=== PATIENT | male | born 1965 | race Caucasian/White ===

== ENCOUNTER 2018-01-02 01:44 | Emergency (ER) | payer BC, SELFPAY ==
[2018-01-02 01:45] VITALS: BP 134/90; PULSE 75; RESP 14; TEMP 36.9; O2SAT 100; BMI 27.9
--- NOTE | 2018-01-02 01:48 | NURSING ---
CALLED FOR EKG PER RN REQUEST, PULLED OLD EKG'S FOR
--- NOTE | 2018-01-02 02:11 | EKG12_ITS ---
Test Reason : SYNCOPE Blood Pressure : / mmHG Vent. Rate : 078 BPM Atrial Rate : 078 BPM P-R Int : 172 ms QRS Dur : 076 ms QT Int : 354 ms P-R-T Axes : 054 033 029 degrees QTc Int : 403 ms Normal sinus rhythm Normal ECG Confirmed by MASTER DUKES, REYNA ([id number]), newspaper managing editor YG TEIXEIRA ([id number] on 01/05/2018 1:19:13 PM Referred By: CHRISTIAN Confirmed By:REYNA THAO MD
--- NOTE | 2018-01-02 02:11 | RAD_ITS ---
STUDY: X-RAY CHEST REASON FOR EXAM: Male, 52 years old. Syncope TECHNIQUE: Frontal and lateral views of the chest. COMPARISON: None. FINDINGS: The lungs are clear and expanded. There is no demonstrated pleural abnormality. Normal size heart. Normal mediastinum and brisa. Normal visualized pulmonary arteries. Normal visualized aortic arch and descending thoracic aorta. Normal visualized thoracic spine. Normal visualized ribs, clavicles, and shoulders. There is no demonstrated abnormality of the visualized soft tissue structures of the upper abdomen. RAD/Chest PA and Lateral IMPRESSION: Normal x-ray examination of the chest. Electronically Signed: Marcie Noland MD at 3:40 EDT Tel , Service support ,
[2018-01-02 02:25] VITALS: BP 125/86; BP 126/75; BP 144/85; PULSE 74; PULSE 75; PULSE 86
[2018-01-02 02:25] LABS: Absolute Lymphocyte Count 1.14 X10^3/ul (0.83-4.51); Absolute Neutrophil Count 4.1 X10^3/uL (2.0-7.7); Basophil# 0.04 X10^3/uL; Basophil% 0.7 % (0-1); Eosinophil# 0.06 X10^3/uL; Hematocrit 36.6 % (40-54); Hemoglobin 12.4 g/dl (13.0-16.5); Lymphocyte # 1.14 X10^3/ul (4.0); Lymphocyte % 19.2 % (19-41); Mean Corp Hgb Conc 33.9 g/gl (32-36); Mean Corpuscular Volume 88.4 fL (80-94); Mean Platelet Vol. 9.4 fl (6.2-12.0); Monocyte# 0.57 X10^3/uL; Monocyte% 9.6 % (0-10); Neutrophil # 4.13 X10^3/uL (2.7-7.7); Neutrophil % 69.3 % (47-70); Platelet Count 201 K/mm3 (150-450); RBC Distribution Width CV 12.1 % (11.6-14.6); RBC Distribution Width SD 38.9 fl (35.1-43.9); Red Blood Count 4.14 M/mm3 (4.6-6.2)
--- NOTE | 2018-01-02 02:25 | RAD_ITS ---
STUDY: X-RAY - LEFT KNEE REASON FOR EXAM: Male, 52 years old. Syncope TECHNIQUE: 5 view(s) of the knee. COMPARISON: None. FINDINGS: Normal visualized distal femur. Normal visualized proximal tibia and fibula. Normal proximal tibiofibular articulation. Normal medial femorotibial compartment. Normal lateral femorotibial compartment. Normal patellofemoral articulation. The soft tissue structures are unremarkable. RAD/Knee 4 or More Views IMPRESSION: Normal x-ray examination of the knee. Electronically Signed: Camilo Mclaughlin MD at 3:13 EDT , Service support ,
[2018-01-02 02:27] LABS: POSITIVE COUNT NO; POSITIVE DIFFERENTIAL NO; POSITIVE MORPHOLOGY NO
[2018-01-02 02:44] LABS: Anion Gap 7 (5-15); BUN 15 mg/dL (7-18); BUN/Creat Ratio 13.2 RATIO (10-20); Calcium,Total 7.7 mg/dL (8.5-10.1); Chloride 100 mmol/L (98-107); Creatinine, Serum 1.14 mg/dL (0.70-1.30); EST Glomerular Filtration Rate 71 mL/min (>60); Est Glom Filt Rate - Afr Amer 86 mL/min (>60); Estimated Creatinine Clearance 74.94 ml/min; Glucose 206 mg/dL (74-106); Potassium 4.1 mmol/L (3.5-5.1); Sodium Level 135 mmol/L (136-145)
[2018-01-02] MEDS: Diphth,Pertuss(Acell),Tet Vac 0.5 ML Vial IM (03:37)
[2018-01-02 03:45] VITALS: RESP 16
--- NOTE | 2018-01-02 03:49 | ED.DCSUM_ITS ---
- ER Visit Summary Date of Service: 01/02/18 Chief Complaint: Near syncope History of Present Illness: The patient is a 52 M who presents with near syncope. He did donate blood today. He also had a glass of wine tonight. He was standing for several minutes speaking to his when he began to feel lightheaded and dizzy. He states he felt like the blood was draining from my head. He became diaphoretic. He thought his blood sugar may be low. He began to walk towards another room and fell. He does not believe he completely lost consciousness. He did hit his left knee when he fell and is complaining of some left knee discomfort although he was able to ambulate. Currently while resting in the bed he is now completely symptomatic. He states his blood sugar was 170. No chest pain or shortness of breath. No history of coronary disease or dysrhythmia. No history of prior similar symptoms. No recent illness. Physical Examination: Laboratory studies are unremarkable Moist mucous membranes Heart regular rate and rhythm Lungs are clear Abdomen soft Abrasion left elbow but no tenderness active full range of motion without pain Contusion to the anterior left knee no effusion active full range of motion Test Results: EKG shows normal sinus rhythm at a rate of 78. Chest x-ray shows no acute process. Knee x-ray normal. Laboratory studies including troponin unremarkable and orthostatic vital signs are negative. Emergency Department Course and Treatment: Patient declined IV fluids here stating that he drank a large volume of water prior to presentation here to the emergency department. Static vital signs are negative. Workup unremarkable. I do believe his near syncope was related to hypovolemia from his blood donation earlier which was likely exacerbated by alcohol tonight and standing still. I do not see an indication for hospitalization. He was advised to take his time when changing positions and to avoid alcohol after blood donation in the future. All questions answered bedside. Patient family agreeable to plan. Patient discharged. Treatment Plan: [] Disposition: Discharge Impression: Left knee contusion Left elbow abrasion Near syncope This note was generated with [employer] dictation software. It may contain incorrect words, spelling, and punctuation that were not noted in review of the chart prior to signing ED Disposition - Plan for ED Patient: Chief Complaint: Syncope Referrals: Zev Abraham MD [Primary Care Provider] -
--- NOTE | 2018-01-02 03:49 | ED.DEP ---
ED Disposition - Plan for ED Patient: Chief Complaint: Syncope Instructions: ED Near Syncope Unkn, ED Contusion Lower Ext, ED Abrasion Referrals: Zev Abraham MD [Primary Care Provider] -
== END 2018-01-02 03:57 | disposition home or self-care (01) ==
PROVIDERS: Emergency Provider Emergency Medicine; Family Provider Family Medicine; PCP Family Medicine
DX: R55 Syncope and collapse (principal); S80.02XA Contusion of left knee, initial encounter; S50.312A Abrasion of left elbow, initial encounter; E11.9 Type 2 diabetes mellitus without complications; I10 Essential (primary) hypertension; E78.00 Pure hypercholesterolemia, unspecified; Z79.4 Long term (current) use of insulin; Z79.82 Long term (current) use of aspirin; Z79.899 Other long term (current) drug therapy; W18.39XA Other fall on same level, initial encounter; Y93.89 Activity, other specified; Y92.009 Unspecified place in unspecified non-institutional (private) residence as the place of occurrence of the external cause; Y99.8 Other external cause status
CPT/HCPCS: 71046; 73564; 80048; 84484; 85025; 90471; 90715; 93005; 99285; A4216

== ENCOUNTER → 2018-01-21 07:05 | Outpatient (CLI) | payer BC, SELFPAY ==
[2018-01-21 10:10] LABS: ALB/GLOB Ratio 1.2 RATIO (0.9-2.4); AST(SGOT) 20 U/L (15-37); Alanine Aminotransfer ALT/SGPT 20 U/L (16-61); Albumin, Serum 3.4 g/dL (3.2-5.0); Alkaline Phosphatase 64 U/L (45-117); Anion Gap 8 (5-15); BUN 14 mg/dL (7-18); BUN/Creat Ratio 11.1 RATIO (10-20); Calcium,Total 8.1 mg/dL (8.5-10.1); Chloride 105 mmol/L (98-107); Cholesterol 135 mg/dL (200); Creatinine, Serum 1.26 mg/dL (0.70-1.30); EST Glomerular Filtration Rate 63 mL/min (>60); Est Glom Filt Rate - Afr Amer 77 mL/min (>60); Globulin 2.9 g/dL (2.2-4.2); Glucose 148 mg/dL (74-106); Hemoglobin A1c 6.7 % (4.2-6.3); High Density Lipoprotein 56 mg/dL; Potassium 4.2 mmol/L (3.5-5.1); Protein, Total 6.3 g/dL (6.4-8.2); Sodium Level 141 mmol/L (136-145); Triglycerides 86 mg/dL; Very Low Density Lipoprotein 17 mg/dL (5-40)
[2018-01-21 10:31] LABS: Microalbumin,Random Urine 5.2 mg/L (NO RANGE EST.); Microalbumin:Creatinine Ratio 3.4 mg/g CRE (<30 mg/g CRE)
== END ==
PROVIDERS: Family Provider Family Medicine; PCP Family Medicine; Visit Provider Nurse Practitioner
DX: E10.9 Type 1 diabetes mellitus without complications (principal)
CPT/HCPCS: 36415; 80053; 80061; 82043; 82570; 83036

== ENCOUNTER 2020-10-12 18:00 | Outpatient (RCR) | payer OTHER, SELFPAY ==
[2018-01-22 08:32] VITALS: BMI 27.9
--- NOTE | 2020-08-29 13:00 | HP.PTEVAL ---
Patient's Visit Information LETI NEGRETE is a 55 year old M referred to Physical Therapy by CHRISTIE MckenzieM with a diagnosis of L Plantarfascitis. Date of Evaluation: 08/28/20 Physical Therapist: Eladio Wyatt, PT, ATC - Visit Plan Frequency: 2-3x /Week Duration: 4-6 Weeks Plan: L foot stretching, DTR, US, and HEP - Subjective Pt reports he has had L heel pain for several years. Pt notes his pain comes and goes depending on how much activity he does in that day. Pt reports he has stretched it and received other treatment in the past which is always temperary. Pt reports no L LE tingling or numbness at this time. Pt reports he has had xrays which revealed he has very little padding in his plantar aspect of B feet. Pt reports his goal is to be able to run with his again for exercise. Pt notes he is unable to run and has difficulty with mowing secondary to pain. 0/10 pain at rest, 3/10 at worst. - Pain L heel Pain Intensity (Out of 10): 0 Pain Intensity Range: 3 - Objective Neuro: B LE sensation is WNL to light touch. B achilles reflex= 2/3. Palpation: Mild pain on anterior/plantar calcaneous. No obvious deformity at this time. ROM: R ankle DF= 8, PF= 60; L ankle DF= 6, PF= 60. MMT: B ankles are 5/5 throughout. Gait: Pt ambulates with late pronation in both feet in stance phase - Goals Goal 1:: Decrease L heel pain x 50% to aid with ambulaltion tolerance Goal Time Frame: 4-6 Weeks Goal 2:: Increase L ankle DF ROM x 5-10 degrees to aid with decreasing L heel pain Goal Time Frame: 4-6 Weeks Goal 3:: I with HEP Goal Time Frame: 4-6 Weeks - Rehabilitation Potential Physical Therapy Diagnosis: L foot pain, limited L ankle DF ROM, and difficulty with running secondary to L heel plantarfascitis Rehabilitation Potential: Good - Anticipated Interventions Patient/Client Instruction: Educate patient on: Condition, Plan of Care For the Purpose of:: To improve self management Manual Therapy Techniques to Include: Soft tissue mobilization For the Purpose of:: To decrease pain Thank you for the opportunity to evaluate your patient. For Medicare and Medicare HMO plans, please review the plan of care and approve it. It will need to be FAXED BACK to us at [phone] for Medicare purposes. For Medicare only, by signing this I certify the plan of care. Please let me know if there are questions or concerns regarding this plan of care. Physician Signature: Date:
--- NOTE | 2020-09-25 18:02 | HP.PTREVAL ---
Dr. Adrianna Rodrigues, DPM, It has been my pleasure to treat LETI NEGRETE over the last 7 visits for L Plantarfascitis. Please see the progress note below for an update on the physical therapy plan of care! Subjective: Pt reports mild pain this date Objective/Function: L heel pain ranges from 1-3/10. L ankle DF ROM 10 degrees. Pt is progressing well towards Rx goals. Plan Plan: L foot stretching, DTR, US, and HEP Goals Goal 1:: Decrease L heel pain x 50% to aid with ambulaltion tolerance Goal Time Frame: 4-6 Weeks Goal Progress: Progressing Goal 2:: Increase L ankle DF ROM x 5-10 degrees to aid with decreasing L heel pain Goal Time Frame: 4-6 Weeks Goal 3:: I with HEP Goal Time Frame: 4-6 Weeks Anticipated Interventions Patient/Client Instruction: Educate patient on: Condition, Plan of Care For the Purpose of:: To improve self management Manual Therapy Techniques to Include: Soft tissue mobilization For the Purpose of:: To decrease pain Please do not hesitate to contact me at [phone] by phone or if you have questions or concerns regarding this new plan of care! Sincerely, Eladio Wyatt, PT, ATC
--- NOTE | 2020-12-27 08:36 | HP.PT.NRP ---
LETI MONETWANDAELLEN was seen in my office for initial evaluation on 08/28/20. The following Plan of Care was established for this patient: Initial Frequency: 2-3x /Week Initial Duration: 4-6 Weeks Patient/Client Instruction: Educate patient on: Condition, Plan of Care For the Purpose of:: To improve self management Manual Therapy Techniques to Include: Soft tissue mobilization For the Purpose of:: To decrease pain This patient was last seen in our office . Pertinent comments regarding their Physical therapy will appear below: Pt was treated for 9 PT visits for L foot pain through the date of 10/12/20. Pt did not return after that date and is discontinued at this time. At this point I will be discontinuing this patient from physical therapy. I would be happy to see this patient again in the future if found appropriate by the physician. Thank you! Eladio Wyatt, PT, ATC
== END 2020-10-12 19:00 | disposition home or self-care (01) ==
LOC: PT 18:00
PROVIDERS: PCP Family Medicine; Referring Provider Podiatrist Foot & Ankle Surgery; Visit Provider Podiatrist Foot & Ankle Surgery
DX: M72.2 Plantar fascial fibromatosis (principal); M79.672 Pain in left foot
CPT/HCPCS: 97035; 97110; 97140; 97161; 97164

== ENCOUNTER → 2021-09-26 08:46 | Outpatient (CLI) | payer OTHER, SELFPAY ==
[2021-09-26 12:35] LABS: Vitamin D,25 Hydroxy 64.2 ng/mL
[2021-09-26 12:38] LABS: AST(SGOT) 25 U/L (15-37); Alanine Aminotransfer ALT/SGPT 38 U/L (16-61); Albumin, Serum 3.7 g/dL (3.2-5.0); Alkaline Phosphatase 86 U/L (45-117); Anion Gap 11 (5-15); BUN 12 mg/dL (7-18); BUN/Creat Ratio 8.8 RATIO (10-20); Calcium,Total 8.7 mg/dL (8.5-10.1); Chloride 103 mmol/L (98-107); Cholesterol 145 mg/dL (200); Creatinine, Serum 1.37 mg/dL (0.70-1.30); EST Glomerular Filtration Rate 57 mL/min (>60); Est Glom Filt Rate - Afr Amer 69 mL/min (>60); Globulin 3.6 g/dL (2.2-4.2); Glucose 160 mg/dL (74-106); High Density Lipoprotein 55 mg/dL; Potassium 4.5 mmol/L (3.5-5.1); Protein, Total 7.3 g/dL (6.4-8.2); Sodium Level 142 mmol/L (136-145); Thyroid Stim Hormone (TSH) 3.05 uIU/mL (0.358-3.74); Triglycerides 96 mg/dL; Very Low Density Lipoprotein 19 mg/dL (5-40)
[2021-09-26 12:52] LABS: Microalbumin,Random Urine 9.7 mg/L (NO RANGE EST.)
== END ==
PROVIDERS: PCP Family Medicine; Referring Provider Internal Medicine Endocrinology, Diabetes & Metabolism; Visit Provider Internal Medicine Endocrinology, Diabetes & Metabolism
DX: E10.9 Type 1 diabetes mellitus without complications (principal); E78.5 Hyperlipidemia, unspecified; I10 Essential (primary) hypertension; E78.2 Mixed hyperlipidemia; E55.9 Vitamin D deficiency, unspecified; Z96.41 Presence of insulin pump (external) (internal)
CPT/HCPCS: 36415; 80053; 80061; 82043; 82306; 82570; 84153; 84443; G0103

== ENCOUNTER 2022-01-12 08:41 | Outpatient (CLI) | payer OTHER, SELFPAY ==
[2022-01-12 10:54] LABS: Anion Gap 1 (5-15); BUN 13 mg/dL (7-18); BUN/Creat Ratio 9.3 RATIO (10-20); Calcium,Total 8.6 mg/dL (8.5-10.1); Chloride 105 mmol/L (98-107); EST Glomerular Filtration Rate 55 mL/min (>60); Est Glom Filt Rate - Afr Amer 67 mL/min (>60); Free T3 2.6 pg/mL (2.18-3.98); Glucose 198 mg/dL (74-106); Potassium 4.5 mmol/L (3.5-5.1); Sodium Level 136 mmol/L (136-145); T4 Free Direct 1.18 ng/dL (0.76-1.46); Thyroid Stim Hormone (TSH) 0.65 uIU/mL (0.358-3.74)
== END 2022-01-12 23:59 | disposition home or self-care (01) ==
PROVIDERS: PCP Family Medicine; Referring Provider Internal Medicine Endocrinology, Diabetes & Metabolism; Visit Provider Internal Medicine Endocrinology, Diabetes & Metabolism
DX: F34.1 Dysthymic disorder (principal); Z79.899 Other long term (current) drug therapy
CPT/HCPCS: 36415; 80048; 84439; 84443; 84481; 84482

== ENCOUNTER → 2022-10-24 | Outpatient (CLI) | payer OTHER, SELFPAY ==
[2022-10-24 17:19] LABS: Vitamin D,25 Hydroxy 69.6 ng/mL
[2022-10-24 17:24] LABS: ALB/GLOB Ratio 1.1 RATIO (0.9-2.4); AST(SGOT) 15 U/L (15-37); Alanine Aminotransfer ALT/SGPT 23 U/L (16-61); Albumin, Serum 3.7 g/dL (3.2-5.0); Alkaline Phosphatase 73 U/L (45-117); Anion Gap 8 (5-15); BUN 11 mg/dL (7-18); BUN/Creat Ratio 7.7 RATIO (10-20); Calcium,Total 8.4 mg/dL (8.5-10.1); Chloride 104 mmol/L (98-107); Cholesterol 142 mg/dL (200); Creatinine, Serum 1.42 mg/dL (0.70-1.30); EST Glomerular Filtration Rate 54 mL/min (>60); Est Glom Filt Rate - Afr Amer 66 mL/min (>60); Globulin 3.3 g/dL (2.2-4.2); Glucose 111 mg/dL (74-106); High Density Lipoprotein 57 mg/dL; Potassium 4.5 mmol/L (3.5-5.1); Sodium Level 139 mmol/L (136-145); Thyroid Stim Hormone (TSH) 1.68 uIU/mL (0.358-3.74); Triglycerides 184 mg/dL; Very Low Density Lipoprotein 37 mg/dL (5-40)
== END | disposition home or self-care (01) ==
LOC: BIMLAB 15:54
PROVIDERS: PCP Family Medicine; Visit Provider Nurse Practitioner Family
DX: E10.9 Type 1 diabetes mellitus without complications (principal)
CPT/HCPCS: 36415; 80053; 80061; 82306; 84439; 84443

== ENCOUNTER → 2023-10-23 | Outpatient (CLI) | payer OTHER, SELFPAY ==
--- OUTSIDE RECORDS SUMMARY | 2023-10-23 16:47 | XMS RPT_ITS | CCD ---
Author Name Unknown Address [address] [place] [address] Organization [facility] Care Team Providers Care Hole Filler Name Role Phone Janet Medina LPN Unavailable Unavailable Yessica Dumont NP Unavailable [phone] aJnet Medina LPN Unavailable Unavailable Yessica Dumont NP Unavailable [phone] ERMA HAWLEY Admitting Unavailable LIYAH SOOD Unavailable LIYAH SOOD Unavailable DR ERMA HAWLEY Attending Unavailable DR ERMA HAWLEY Primary Care Unavailable PROVIDER, UNKNOWN Consulting Liyah Kelly MD Primary Care Provider Liyah Sood MD Primary Care Provider Liyah Sood MD Primary Care Provider LIYAH SOOD Attending Unavailable LIYAH SOOD Primary Care Unavailable LIYAH SOOD Referring Unavailable LIYAH SOOD Primary Care Unavailable LIYAH SOOD Referring Unavailable LIYAH SOOD Primary Care Unavailable LIYAH SOOD Attending Unavailable LIYAH SOOD Primary Care Unavailable Allergies Allergy Classification Reported Allergen(s) Allergy Type Date of Onset Reaction(s) Facility (8 sources) Aspartame; Translations: [ASPARTAME] Drug Allergy 11-18-2005 [facility] Work Phone: Medications Completed/Discontinued Medications Medication Drug Class(es) Dates Sig (Normalized) Sig (Original) aspirin 325 mg oral tablet (11 sources) Platelet Aggregation Inhibitor, Nonsteroidal Anti-inflammatory Drug Start: 06-01-2015 take 0.5 tablet by mouth once daily aspirin 325 mg tablet Indications: Type I (juvenile type) diabetes mellitus 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, not stated as uncontrolled (HCC) Take 1/2 tablet by mouth daily. 0 06/01/2015 Active Problems Active Problems Problem Classification Problem Date Documented Date Episodic/Chronic Chronic kidney disease (4 sources) Chronic kidney disease stage 3A ; Translations: [Stage 3a chronic kidney disease (HCC)] Onset: 02-06-2023 Chronic Chronic kidney disease (1 source) Chronic kidney disease; Translations: [Stage 3a chronic kidney disease (HCC)] Onset: 02-06-2023 Diabetes mellitus with complications (5 sources) Hyperlipidemia due to type 1 diabetes mellitus; Translations: [Type 1 diabetes mellitus with other specified complication] Onset: 02-06-2023 Chronic Diabetes mellitus without complication (14 sources) Type 1 diabetes mellitus; Translations: [Type 1 diabetes mellitus without complications] Onset: 12-31-2016 12-31-2016 Chronic Disorders of lipid metabolism (10 sources) Hyperlipidemia; Translations: [Pure hypercholesterolemia] Onset: 12-31-2016 01-06-2017 Chronic Essential hypertension (7 sources) Hypertensive disorder; Translations: [Essential hypertension] Onset: 12-31-2016 12-31-2016 Chronic Miscellaneous mental health disorders (7 sources) Psychophysiologic insomnia; Translations: [Psychophysiologic insomnia] Onset: 09-06-2015 09-06-2015 Chronic Mood disorders (9 sources) Recurrent major depressive episodes; Translations: [Major depressive disorder, recurrent, unspecified] Onset: 07-12-2015 07-12-2015 Chronic Nutritional deficiencies (8 sources) Vitamin D deficiency; Translations: [Vitamin D deficiency, unspecified] Onset: 10-11-2008 07-12-2015 Chronic Open wounds of extremities (4 sources) 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), 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; Translations: [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), 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] Onset: 01-01-2012 01-15-2012 Chronic Other nutritional; endocrine; and metabolic disorders (4 sources) Overweight; Translations: [Overweight] Onset: 12-31-2016 12-31-2016 Chronic Residual codes; unclassified (7 sources) Obstructive sleep apnea syndrome; Translations: [Obstructive sleep apnea (adult) (pediatric)] Onset: 01-10-2015 05-29-2017 Chronic Thyroid disorders (5 sources) Hypothyroidism; Translations: [Hypothyroidism, unspecified] Onset: 02-06-2023 Chronic Unclassified (2 sources) Insertion of insulin pump; Translations: [Presence of insulin pump (external) (internal)] Onset: 12-31-2016 12-31-2016 Viral infection (1 source) Disease caused by 2019-nCoV; Translations: [COVID-19] Episodic Past or Other Problems Problem Classification Problem Date Documented Da te Episodic/Chronic Diabetes mellitus without complication (7 sources) Presence of insulin pump (external) (internal); Translations: [Insulin pump present] Onset: 12-31-2016 12-31-2016 Episodic Fracture of upper limb (4 sources) Open fracture of distal phalanx or phalanges of hand; Translations: [Open fracture of distal phalanx or phalanges of hand] Onset: 01-01-2012 01-21-2012 Episodic Other diseases of kidney and ureters (5 sources) Renal impairment; Translations: [Disorder of kidney and ureter, unspecified] Onset: 03-29-2010 03-29-2010 Episodic Other non-traumatic joint disorders (5 sources) Shoulder joint pain; Translations: [Pain in unspecified shoulder] Onset: 08-26-2012 08-26-2012 Episodic Other nutritional; endocrine; and metabolic disorders (4 sources) Body mass index (BMI) 26.0-26.9, adult; Translations: [Body mass index (BMI) 26.0-26.9, adult] Onset: 12-31-2016 12-31-2016 Episodic Other nutritional; endocrine; and metabolic disorders (2 sources) Overweight; Translations: [Overweight] Onset: 12-31-2016 02-06-2023 Episodic Results Test Name Value Interpretation Reference Range Facil it Vital Signs Date Time Vital Sign Value Performing Clinician Facility 08-22-2023 16:08-0500 Body height 175.3 cm Liyah Sood MD Work Phone: [facility] 08-22-2023 16:08-0500 Body weight 85.46 kg Liyah Sood MD Work Phone: [facility] 08-22-2023 16:08-0500 Diastolic blood pressure 78 mm[Hg] Liyah Sood MD Work Phone: [facility] 08-22-2023 16:08-0500 Heart rate 80 /min Liyah Sood MD Work Phone: [facility] 08-22-2023 16:08-0500 SaO2% (BldA) [Mass fraction] 98 % Liyah Sood MD Work Phone: [facility] 08-22-2023 16:08-0500 Systolic blood pressure 120 mm[Hg] Liyah Sood MD Work Phone: [facility] 02-06-2023 14:44-0400 Body height 175.3 cm Liyah Sood MD Work Phone: [facility] 02-06-2023 14:44-0400 Body weight 87.09 kg Liyah Sood MD Work Phone: [facility] 02-06-2023 14:44-0400 Diastolic blood pressure 66 mm[Hg] Liyah Sood MD Work Phone: [facility] 02-06-2023 14:44-0400 Heart rate 83 /min Liyah Sood MD Work Phone: [facility] 02-06-2023 14:44-0400 SaO2% (BldA) [Mass fraction] 96 % Liyah Sood MD Work Phone: [facility] 02-06-2023 14:44-0400 Systolic blood pressure 106 mm[Hg] Liyah Sood MD Work Phone: [facility] 04-22-2017 15:57-0400 BMI (Body Mass Index) 26.28 kg/m2 Janet [facility] Work Phone: 04-22-2017 15:57-0400 Body Temperature 98 [degF] Janet Travis [facility] Work Phone: 04-22-2017 15:57-0400 BP Diastolic 70 mm[Hg] Janet [facility] Work Phone: 04-22-2017 15:57-0400 BP Systolic 128 mm[Hg] [facility] Work Phone: 04-22-2017 15:57-0400 Height 179.07 cm Janet Adam CLINICAL TECH [facility] Work Phone: 04-22-2017 15:57-0400 Pulse (Heart Rate) 82 /min Janet Nguyen[facility] Work Phone: 04-22-2017 15:57-0400 Respiratory Rate 18 /min Janet Travis [facility] Work Phone: 04-22-2017 15:57-0400 Weight 84.28 kg Janet Medina LPN [facility] Work Phone: 12-31-2016 15:47-0400 BMI (Body Mass Index) 26.7 kg/m2 Yessica Dumont TELEVISION STATION MANAGER [facility] Work Phone: 12-31-2016 15:47-0400 Body weight 85.64 kg Yessica Dumont TELEVISION STATION MANAGER [facility] Work Phone: 12-31-2016 15:47-0400 BP Diastolic 73 mm[Hg] Yessica Dumont TELEVISION STATION MANAGER [facility] Work Phone: 12-31-2016 15:47-0400 BP Systolic 119 mm[Hg] Yessica Dumont TELEVISION STATION MANAGER [facility] Work Phone: 12-31-2016 15:47-0400 Height 179.07 cm Yessica Dumont NP [facility] Work Phone: 12-31-2016 15:47-0400 Pulse (Heart Rate) 76 /min Yessica Dumont TELEVISION STATION MANAGER [facility] Work Phone: 12-31-2016 15:47-0400 Pulse Oximetry 98 % Yessica Dumont NP [facility] Work Phone: 12-31-2016 15:47-0400 Respiratory Rate 16 /min Yessica Dumont TELEVISION STATION MANAGER [facility] Work Phone: 12-31-2016 15:47-0400 Weight 85.64 kg Yessica Dumont TELEVISION STATION MANAGER [facility] Work Phone: 03-04-2012 14:11-0400 Body Temperature 97.4 [degF] Yessica Dumont NP [facility] Work Phone: 03-04-2012 14: BSA (Body Surface Area) 2.08 m2 Yessica Dumont NP [facility] Work Phone: Encounters Encounter Date Encounter Type Care Provider Facility Start: 08-22-2023 End: 08-23-2023 ambulatory LIYAH SOOD Facility:[facility] Start: 08-22-2023 End: 08-22-2023 Patient encounter procedure Liyah Sood MD Work Phone: [facility] [place] Procedures Date Procedure Procedure Detail Performing Clinician Start: 01-12-2022 BMP - EXTERNAL [facility] Prov ider Start: 12-21-2021 Hemoglobin A1c/Hemoglobin.total in Blood [facility] Provider Start: 12-31-2016 End: 12-31-2016 Alcoholism counseling Yessica Dumont NP Start: 12-31-2016 End: 01-08-2017 *CMP Complete Metabolic Panel Yessica Dumont NP Work Phone: Start: 12-31-2016 End: 01-08-2017 *Microalbumin, Creatine Ratio, rand urine Yessica Dumont NP Work Phone: Start: 12-31-2016 End: 01-08-2017 HbA1c Yessica Dumont NP Work Phone: Start: 12-31-2016 End: 01-08-2017 Lipid panel [AGGREGATE] Yessica Dumont N P Work Phone: Start: 10-06-2015 End: 10-06-2015 Colonoscopy Yessica Dumont NP Start: 12-12-2014 Colonoscopy Liyah Rascon MD Work Phone: Start: 03-04-2012 End: 03-04-2012 Documentation of current medications Yessica Dumont NP Plan of Treatment Date Care Activity Detail Author Start: 01-23-2028 PROSTATE CANCER SCRE ENING DISCUSSION PROSTATE CANCER SCREENING DISCUSSION [facility] Start: 01-03-2028 Urine microalbumin profile [facility] Start: 07-24-2027 PROSTATE CANCER SCRE ENING DISCUSSION PROSTATE CANCER SCREENING DISCUSSION [facility] Start: 10-06-2025 Colonoscopy COLONOSCOPY [facility] Start: 10-06-2025 COLORECTAL CANCER SCREENING COLORECTAL CANCER SCREENING [facility] Start: 12-12-2024 Colonoscopy COLONOSCOPY [facility] Start: 12-12-2024 COLORECTAL CANCER SCREENING COLORECTAL CANCER SCREENING [facility] Start: 08-22-2024 Annual PCP Team Composite Assembler velma Disease Visit Annual PCP Team Chronic Disease Visit [facility] Start: 08-22-2024 BP Controlled (<130/80) BP Controlle d (<130/80) [facility] Start: 08-22-2024 Pneumococcal vaccination Pneum ococcal Vaccine (1 - PCV) [facility] Immunizations Immunization Date Immunization Notes Care Provider Fa cility 09-18-2018 Influenza, injectabl e, Madin Natalia Canine Kidney, preservative free, quadrivalent Liyah Sood MD Work Phone: [facility] 09-18-2018 influenza virus vaccine, unspecified formulation Liyah Sood MD Work Phone: [facility] 01-02-2018 tetanus toxoid, redu ashley diphtheria toxoid, and acellular pertussis vaccine, adsorbed Liyah Sood MD Work Phone: [facility] 08-20-2017 influenza, seasonal, injectable Liyah Sood MD Work Phone: [facility] 07-20-2013 influenza virus vaccine, unspecified formulation Liyah Sood MD Work Phone: [facility] 07-06-2012 influenza virus vaccine, whole virus Liyah Sood MD Work Phone: [facility] 01-01-2012 diphtheria, tetanus toxoids and acellular pertussis vaccine Liyah Sood MD Work Phone: [facility] 08-13-2010 influenza virus vaccine, unspecified formulation Liyah Sood MD Work Phone: [facility] Work Phone: 08-21-2009 novel [id number], all formulations Liyah Sood MD Work Phone: [facility] Work Phone: Payers Date Payer Category Payer Unknown [id number] 2019 Unknown MMO MMO [employer] [id number] 2019-Present [phone] [address] [place] [address] PPO [id number] 2019 Unknown [id number] 1965 Unknown [id number] Social History Date Type Detail Facility Start: 02-06-2023 Tobacco smoking stat us [facility] Never smoked tobacco [facility] Start: 05-04-2021 End: 08-22-2023 Alcohol intake Current drinker of alcohol (finding) [facility] Start: 10-19-2020 End: 08-05-2022 History SDOH Alcohol Frequency 3 [facility] Start: 10-19-2020 End: 08-05-2022 History SDOH Alcohol Std Drinks 1 [facility] Start: 10-19-2020 End: 08-05-2022 History SDOH Alcohol Binge 2 [facility] Start: 12-12-2014 History SDOH Alcohol Comment occasional [facility] Start: 10-19-2020 History SDOH Physica l Activity DPW 0 [facility] Start: 10-19-2020 History SDOH Financial 5 [facility] Start: 10-19-2020 Education 17 [facility] Start: 1965 Sex Assigned At Male [facility] Start: 07-25-2022 End: 08-04-2022 Exposure to SARS-CoV-2 (event) Yes [facility] Work Phone: Start: 08-05-2022 History SDOH Financial 4 [facility] Start: 02-06-2023 Tobacco use and exposure Smokeless tobacco non-user [facility] Start: 08-05-2022 End: 02-06-2023 History of Social function [facility] Start: 08-05-2022 End: 02-06-2023 Social connection and isolation panel [facility] Are you now , , , , never or living with a partner? [facility] How often to you hav e a drink containing alcohol? Monthly or less [facility] How many standard drinks containing alcohol do you have on a typical day? 3 or 4 [facility] How often do you hav e 6 or more drinks on 1 occasion? Never [facility] How hard is it for y ou to pay for the very basics like food, housing, medical care, and heating Not very hard [facility] Adult Depression Screening Assessment 0 [facility] Do you feel stress - tense, restless, nervous, or anxious, or unable to sleep at night because your mind is troubled all the time - these days [OSQ] Only a little [facility] (I/We) worried wheth er (my/our) food would run out before (I/we) got money to buy more. Never true [facility] In the past 12 month s, was there a time when you were not able to pay the mortgage or rent on time? No [facility] Start: 04-20-2020 Gender identity Identifies as male gender (finding) [facility] Start: 04-20-2020 Sexual orientation Heterosexual (kristin byrne) [facility] Medical Equipment Procedure Code Equipment Code Equipment Origin al Text Equipment Identifier Dates Test 4 times esmer ly Dx diabetes. On insulin Start: 05-05-2020 Clinical Notes 10-29-2012 to 08-22-2023 Liyah Sood MD - 08/22/2023 4:08 PM Amparo Sood MD - 02/06/2023 2:44 PM EDT Note Date & Type Note Facility 08-22-2023 Note HNO ID: [id number] Author: Liyah Sood MD Service: ? Author Type: Physician Type: Progress Notes Filed: 08/22/2023 4:29 PM Note Text: Patient presents with: 6 Month Exam HPI: Patient presents today for office visit for follow up. DM: Reports overall feeling well. Medication side effects: No. Home sugar check frequency/results:Has continuous glucose monitor. Hypoglycemic spells: No. Watching diet: No. Unexpected weight loss: No. Polyuria, polydipsia: No. Vision Changes: No. Vision is improving. Foot lesions or numbness or pain: No. Still seeing endo. A1c remains under 7.0 HYPERLIPIDEMIA: Patient is taking medications: Yes. Patient is watching diet: No. Patient denies myalgias: Yes. Patient denies gi upset: Yes Continues on Enalapril for kidney protection. Thyroid and cholesterol has been checked by endo. GFR is stable. Emotionally is doing well. Component Latest Ref Rng AND Units 08/16/2023 Glucose 74 - 99 mg/dL 149 (H) BUN 9 - 24 mg/dL 16 Creatinine 0.73 - 1.22 mg/dL 1.39 (H) Sodium 136 - 144 mmol/L 136 Potassium 3.7 - 5.1 mmol/L 5.1 Chloride 97 - 105 mmol/L 100 CO2 22 - 30 mmol/L 26 Anion Gap 9 - 18 mmol/L 10 Calcium 8.5 - 10.2 mg/dL 9.4 eGFR >=60 mL/min/1.73mA? 58 (L) MEDICATIONS: Current Outpatient Medications Medication Sig BAQSIMI 3 mg/actuation nasal spray FARXIGA 10 mg tablet Take 10 mg by mouth once daily. SYNTHROID 75 mcg tablet Take 75 mcg by mouth once daily. rosuvastatin (CRESTOR) 5 mg tablet Take 5 mg by mouth once daily. buPROPion XL (WELLBUTRIN XL) 300 mg 24 hr tablet Take 1 tablet by mouth once daily. blood sugar diagnostic (CONTOUR NEXT TEST STRIPS) test strip Test 4 times daily Dx diabetes. On insulin insulin lispro (HUMALOG U-100 INSULIN) 100 unit/mL injection To use as directed with insulin pump. May use up to 50 units daily. enalapril (VASOTEC) 10 mg tablet Take 1 tablet by mouth once daily. aspirin 325 mg tablet Take 1/2 tablet by mouth daily. (Patient taking differently: Take 325 mg by mouth once daily.) CHOLECALCIFEROL (VITAMIN D3) 2,000 UNIT CAP Take 5,000 Units by mouth every other day. XALATAN 0.005 % EYE DROPS No current facility-administered medications for this visit. ALLERGIES: ALLERGIES Allergen Reactions Aspartame migraines PAST MEDICAL HISTORY Diagnosis Date Borderline glaucoma with ocular hypertension Hypothyroidism 02/06/2023 Insomnia, unspecified Major depressive disorder, recurrent episode, unspecified on Wellbutrin Obstructive sleep apnea Pure hypercholesterolemia Type I (juvenile type) diabetes mellitus 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, not stated as uncontrolled (HCC) age 16 PAST SURGICAL HISTORY Procedure Laterality Date COLONOSCOPY FLX DX W/COLLJ SPEC WHEN PFRMD 12/12/2014 Colonoscopy DESTRUCTION, 1ST LESION Left great toe UNLISTED PROCEDURE HANDS/FINGERS after industrial trauma FAMILY HISTORY Problem Relation Age of Onset other (glaucoma [Other]) Father Hypertension Mother Cancer Mother uterine? survived - still alive Colon Cancer Other none Prostate Cancer Other none Cancer Maternal Grandmother lung cancer Social History Tobacco Use Smoking status: Never Smokeless tobacco: Never Vaping Use Vaping Use: Never used Substance Use Topics Alcohol use: Yes Comment: occasional Drug use: No Reviewed current medications, allergies, past medical history, surgical history, family history and social history today. REVIEW OF SYSTEMS All other reviewed and negative other than HPI. HEALTH MAINTENANCE: Reviewed health maintenance issues today and recommended the following in detail. Pneumococcal Vaccine(1 - PCV) Never done Shingrix Vaccine(1 of 2) Never done Influenza Vaccine(1) due on 06/06/2023 VITALS: BP 120/78 Pulse 80 Ht 175.3 cm (5' 9 ) Wt 85.5 kg (188 lb 6.4 oz) SpO2 98% BMI 27.82 kg/m? Last 4 Encounter Wt Readings: Date: Wt: 02/06/2023 87.1 kg (192 lb) 05/04/2021 89.4 kg (197 lb) 04/28/2021 88.6 kg (195 lb 6.4 oz) 11/03/2020 94.8 kg (209 lb) PHYSICAL EXAMINATION: General appearance: Well appearing, alert, in no acute distress, well-hydrated, well nourished. Skin: Skin color, texture, turgor normal, no suspicious rashes or lesions Head: Normocephalic, no masses, lesions, tenderness or abnormalities Lungs: Lungs clear to auscultation. No wheezing, rhonchi, rales Heart: RRR without murmur, gallop, or rubs. No ectopy Abdomen: Normal abdominal exam, Abdomen soft, non-tender. Bowel sounds normal. No masses, organomegaly Extremities: No deformities, edema, skin discoloration, clubbing or cyanosis. Good capillary refill. Musculoskeletal: No joint swelling, deformity, or tenderness ASSESSMENT/PLAN: 1. Hyperlipidemia due to type 1 diabetes mellitus (HCC) - ICD9: 250.81, 272.4, ICD10: E10.69, E78.5 (primary diagnosis) - stable. Continue meds. - HGB A1C 2. Primary hypertension - ICD9: 401.9, IC (more content not included)... [facility] 08-22-2023 History of Present illness Narrative Patient presents with: 6 Month Exam HPI: Patient presents today for office visit for follow up. DM: Reports overall feeling well. Medication side effects: No. Home sugar check frequency/results:Has continuous glucose monitor. Hypoglycemic spells: No. Watching diet: No. Unexpected weight loss: No. Polyuria, polydipsia: No. Vision Changes: No. Vision is improving. Foot lesions or numbness or pain: No. Still seeing endo. A1c remains under 7.0 HYPERLIPIDEMIA: Patient is taking medications: Yes. Patient is watching diet: No. Patient denies myalgias: Yes. Patient denies gi upset: Yes Continues on Enalapril for kidney protection. Thyroid and cholesterol has been checked by endo. GFR is stable. Emotionally is doing well. Component Latest Ref Rng & Units 08/16/2023 Glucose 74 - 99 mg/dL 149 (H) BUN 9 - 24 mg/dL 16 Creatinine 0.73 - 1.22 mg/dL 1.39 (H) Sodium 136 - 144 mmol/L 136 Potassium 3.7 - 5.1 mmol/L 5.1 Chloride 97 - 105 mmol/L 100 CO2 22 - 30 mmol/L 26 Anion Gap 9 - 18 mmol/L 10 Calcium 8.5 - 10.2 mg/dL 9.4 eGFR >=60 mL/min/1.73m 58 (L) MEDICATIONS: Current Outpatient Medications Medication Sig BAQSIMI 3 mg/actuation nasal spray FARXIGA 10 mg tablet Take 10 mg by mouth once daily. SYNTHROID 75 mcg tablet Take 75 mcg by mouth once daily. rosuvastatin (CRESTOR) 5 mg tablet Take 5 mg by mouth once daily. buPROPion XL (WELLBUTRIN XL) 300 mg 24 hr tablet Take 1 tablet by mouth once daily. blood sugar diagnostic (CONTOUR NEXT TEST STRIPS) test strip Test 4 times daily Dx diabetes. On insulin insulin lispro (HUMALOG U-100 INSULIN) 100 unit/mL injection To use as directed with insulin pump. May use up to 50 units daily. enalapril (VASOTEC) 10 mg tablet Take 1 tablet by mouth once daily. aspirin 325 mg tablet Take 1/2 tablet by mouth daily. (Patient taking differently: Take 325 mg by mouth once daily.) CHOLECALCIFEROL (VITAMIN D3) 2,000 UNIT CAP Take 5,000 Units by mouth every other day. XALATAN 0.005 % EYE DROPS No current facility-administered medications for this visit. ALLERGIES: ALLERGIES Allergen Reactions Aspartame migraines PAST MEDICAL HISTORY Diagnosis Date Borderline glaucoma with ocular hypertension Hypothyroidism 02/06/2023 Insomnia, unspecified Major depressive disorder, recurrent episode, unspecified on Wellbutrin Obstructive sleep apnea Pure hypercholesterolemia Type I (juvenile type) diabetes mellitus 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, not stated as uncontrolled (HCC) age 16 PAST SURGICAL HISTORY Procedure Laterality Date COLONOSCOPY FLX DX W/COLLJ SPEC WHEN PFRMD 12/12/2014 Colonoscopy DESTRUCTION, 1ST LESION Left great toe UNLISTED PROCEDURE HANDS/FINGERS after industrial trauma FAMILY HISTORY Problem Relation Age of Onset other (glaucoma [Other]) Father Hypertension Mother Cancer Mother uterine? survived - still alive Colon Cancer Other none Prostate Cancer Other none Cancer Maternal Grandmother lung cancer Social History Tobacco Use Smoking status: Never Smokeless tobacco: Never Vaping Use Vaping Use: Never used Substance Use Topics Alcohol use: Yes Comment: occasional Drug use: No Reviewed current medications, allergies, past medical history, surgical history, family history and social history today. REVIEW OF SYSTEMS All other reviewed and negative other than HPI. HEALTH MAINTENANCE: Reviewed health maintenance issues today and recommended the following in detail. Pneumococcal Vaccine(1 - PCV) Never done Shingrix Vaccine(1 of 2) Never done Influenza Vaccine(1) due on 06/06/2023 VITALS: BP 120/78 Pulse 80 Ht 175.3 cm (5' 9 ) Wt 85.5 kg (188 lb 6.4 oz) SpO2 98% BMI 27.82 kg/m Last 4 Encounter Wt Readings: Date: Wt: 02/06/2023 87.1 kg (192 lb) 05/04/2021 89.4 kg (197 lb) 04/28/2021 88.6 kg (195 lb 6.4 oz) 11/03/2020 94.8 kg (209 lb) PHYSICAL EXAMINATION: General appearance: Well appearing, alert, in no acute distress, well-hydrated, well nourished. Skin: Skin color, texture, turgor normal, no suspicious rashes or lesions Head: Normocephalic, no masses, lesions, tenderness or abnormalities Lungs: Lungs clear to auscultation. No wheezing, rhonchi, rales Heart: RRR without murmur, gallop, or rubs. No ectopy Abdomen: Normal abdominal exam, Abdomen soft, non-tender. Bowel sounds normal. No masses, organomegaly Extremities: No deformities, edema, skin discoloration, clubbing or cyanosis. Good capillary refill. Musculoskeletal: No joint swelling, deformity, or tenderness ASSESSMENT/PLAN: 1. Hyperlipidemia due to type 1 diabetes mellitus (HCC) - ICD9: 250.81, 272.4, ICD10: E10.69, E78.5 (primary diagnosis) - stable. Continue meds. - HGB A1C 2. Primary hypertension - ICD9: 401.9, ICD10: I10 - Controlled - Continue current medications 3. Stage 3a chronic kidney disease (HCC) - ICD9: 585.3, ICD10: N18.31 - stable. 4. Type 1 diabetes mellitus without complication (HCC) - ICD9: 250.01, ICD10: E10.9 - Controlled - Continue current medications 5. Hypothyroidism, unspecified type - ICD9: 244.9, ICD10: E03.9 - stable. Get copy of labsl. 6. Episode of recurrent major depressive disorder, unspecified depression episode severity (HCC) - ICD9: 296.30, ICD10: F33.9 - no current issues. 7. Presence of insulin pump - ICD9: V45.85, ICD10: Z96.41 Liyah Sood MD documented in this encounter [facility] 02-06-2023 Note HNO ID: [id number] Author: Liyah Sood MD Service: ? Author Type: Physician Type: Progress Notes Filed: 02/06/2023 3:48 PM Note Text: Patient presents with: Physical HPI: Patient presents today for office visit for physical. DM: Continuous glucose monitor Avg [address] Stephens. Started on low dose Crestor 5 mg. No myalgias No vision changes Up to date on eye exam. Has occular hypertension. Sees Ophthalmology twice a year. No foot lesions, numbness or pain A1c 6.4 HYPOTHYROID: Thyroid has always been marginal and given family Hx psych put him on Synthroid to possibly help with mood. PSYCH: Moods have been decent for the most part. No major complaints. Sleeping well. No issues. Tolerating Bupropion. Last colonoscopy done in 2014. Normal. Recommended repeat 10 years. Declines ua or renal us. Component Latest Ref Rng AND Units 01/22/2023 WBC 3.70 - 11.00 k/uL 5.79 RBC 4.20 - 6.00 m/uL 4.92 Hemoglobin 13.0 - 17.0 g/dL 14.8 Hematocrit 39.0 - 51.0 % 44.6 MCV 80.0 - 100.0 fL 90.7 MCH 26.0 - 34.0 pg 30.1 MCHC 30.5 - 36.0 g/dL 33.2 RDW-CV 11.5 - 15.0 % 11.7 Platelet Count 150 - 400 k/uL 237 MPV 9.0 - 12.7 fL 10.9 Neut% % 47.5 Abs Neut (ANC) 1.45 - 7.50 k/uL 2.75 Lymph% % 37.0 Abs Lymph 1.00 - 4.00 k/uL 2.14 Hyde% % 11.7 Abs Hyde <0.87 k/uL 0.68 Eosin% % 2.6 Abs Eosin <0.46 k/uL 0.15 Baso% % 1.0 Abs Baso <0.11 k/uL 0.06 Immature Gran % % 0.2 IMMATURE GRANS (ABS) <0.10 k/uL <0.03 NRBC /100 WBC 0.0 Absolute nRBC <0.01 k/uL <0.01 DTYPE Auto Protein, Total 6.0 - 8.5 g/dL 6.6 Albumin 3.2 - 5.0 g/dL 3.9 Calcium 8.5 - 10.5 mg/dL 9.4 Bilirubin, Total 0.2 - 1.0 mg/dL 0.7 Alkaline Phosphatase 45 - 117 U/L 66 AST 8 - 34 U/L 20 ALT 13 - 61 U/L 14 Glucose 70 - 100 mg/dL 160 (H) BUN 7 - 26 mg/dL 16 Creatinine 0.50 - 1.40 mg/dL 1.48 (H) Sodium 136 - 145 mmol/L 140 Potassium 3.5 - 5.1 mmol/L 4.9 Chloride 98 - 107 mmol/L 106 CO2 21 - 32 mmol/L 29 Anion Gap 5 - 16 mmol/L 5 eGFR >=60 mL/min/1.73mA? 54 (L) Total Cholesterol, Nonfasting <200 mg/dL 152 Triglycerides, Nonfasting <150 mg/dL 89 HDL Cholesterol, Nonfasting >39 mg/dL 56 LDL Cholesterol, Nonfasting <100 mg/dL 78 Non HDL Cholesterol, Nonfasting <130 mg/dL 96 VLDL Cholesterol, Nonfasting <30 mg/dL 18 Total Chol/HDL Ratio, Nonfasting <5.10 mg/dL 2.71 LDL/HDL Ratio, Nonfasting <2.54 mg/dL 1.39 Hemoglobin A1C 4.3 - 6.0 % 6.4 (H) Estimated Average Glucose mg/dL 137 PSA 0.00 - 4.00 ng/mL 0.57 TSH 0.358 - 3.740 mIU/L 3.482 MEDICATIONS: Current Outpatient Medications Medication Sig FARXIGA 10 mg tablet Take 10 mg by mouth once daily. SYNTHROID 75 mcg tablet Take 75 mcg by mouth once daily. rosuvastatin (CRESTOR) 5 mg tablet Take 5 mg by mouth once daily. buPROPion XL (WELLBUTRIN XL) 300 mg 24 hr tablet Take 1 tablet by mouth once daily. blood sugar diagnostic (CONTOUR NEXT TEST STRIPS) test strip Test 4 times daily Dx diabetes. On insulin insulin lispro (HUMALOG U-100 INSULIN) 100 unit/mL injection To use as directed with insulin pump. May use up to 50 units daily. enalapril (VASOTEC) 10 mg tablet Take 1 tablet by mouth once daily. aspirin 325 mg tablet Take 1/2 tablet by mouth daily. (Patient taking differently: Take 325 mg by mouth once daily.) CHOLECALCIFEROL (VITAMIN D3) 2,000 UNIT CAP Take 5,000 Units by mouth every other day. XALATAN 0.005 % EYE DROPS No current facility-administered medications for this visit. ALLERGIES: ALLERGIES Allergen Reactions Aspartame migraines PAST MEDICAL HISTORY Diagnosis Date Borderline glaucoma with ocular hypertension Insomnia, unspecified Major depressive disorder, recurrent episode, unspecified on Wellbutrin Obstructive sleep apnea Pure hypercholesterolemia Type I (juvenile type) diabetes mellitus 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, not stated as uncontrolled (HCC) age 16 PAST SURGICAL HISTORY Procedure Laterality Date COLONOSCOPY FLX DX W/COLLJ SPEC WHEN PFRMD 12/12/2014 Colonoscopy DESTRUCTION, 1ST LESION Left great toe UNLISTED PROCEDURE HANDS/FINGERS after industrial trauma FAMILY HISTORY Problem Relation Age of Onset other (glaucoma [Other]) Father Hypertension Mother Cancer Mother uterine? survived - still alive Colon Cancer Other none Prostate Cancer Other none Cancer Maternal Grandmother lung cancer Social History Tobacco Use Smoking status: Never Smokeless tobacco: Never Vaping Use Vaping Use: Never used Substance Use Topics Alcohol use: Yes Comment: occasional Drug use: No Reviewed current medications, allergies, past medical history, surgical history, family history and social history today. REVIEW OF SYSTEMS CARDIOVASCULAR: Negative for chest pain, leg swelling, hypertension, CHF or palpitations All other reviewed and negative other than HPI. HEALTH MAINTENANCE: Reviewed health maintenance issues today and recommended the fol (more content not included)... [facility] 02-06-2023 History of Present illness Narrative Patient presents with: Physical HPI: Patient presents today for office visit for physical. DM: Continuous glucose monitor Avg [address] Stephens. Started on low dose Crestor 5 mg. No myalgias No vision changes Up to date on eye exam. Has occular hypertension. Sees Ophthalmology twice a year. No foot lesions, numbness or pain A1c 6.4 HYPOTHYROID: Thyroid has always been marginal and given family Hx psych put him on Synthroid to possibly help with mood. PSYCH: Moods have been decent for the most part. No major complaints. Sleeping well. No issues. Tolerating Bupropion. Last colonoscopy done in 2014. Normal. Recommended repeat 10 years. Declines ua or renal us. Component Latest Ref Rng & Units 01/22/2023 WBC 3.70 - 11.00 k/uL 5.79 RBC 4.20 - 6.00 m/uL 4.92 Hemoglobin 13.0 - 17.0 g/dL 14.8 Hematocrit 39.0 - 51.0 % 44.6 MCV 80.0 - 100.0 fL 90.7 MCH 26.0 - 34.0 pg 30.1 MCHC 30.5 - 36.0 g/dL 33.2 RDW-CV 11.5 - 15.0 % 11.7 Platelet Count 150 - 400 k/uL 237 MPV 9.0 - 12.7 fL 10.9 Neut% % 47.5 Abs Neut (ANC) 1.45 - 7.50 k/uL 2.75 Lymph% % 37.0 Abs Lymph 1.00 - 4.00 k/uL 2.14 Hyde% % 11.7 Abs Hyde <0.87 k/uL 0.68 Eosin% % 2.6 Abs Eosin <0.46 k/uL 0.15 Baso% % 1.0 Abs Baso <0.11 k/uL 0.06 Immature Gran % % 0.2 IMMATURE GRANS (ABS) <0.10 k/uL <0.03 NRBC /100 WBC 0.0 Absolute nRBC <0.01 k/uL <0.01 DTYPE Auto Protein, Total 6.0 - 8.5 g/dL 6.6 Albumin 3.2 - 5.0 g/dL 3.9 Calcium 8.5 - 10.5 mg/dL 9.4 Bilirubin, Total 0.2 - 1.0 mg/dL 0.7 Alkaline Phosphatase 45 - 117 U/L 66 AST 8 - 34 U/L 20 ALT 13 - 61 U/L 14 Glucose 70 - 100 mg/dL 160 (H) BUN 7 - 26 mg/dL 16 Creatinine 0.50 - 1.40 mg/dL 1.48 (H) Sodium 136 - 145 mmol/L 140 Potassium 3.5 - 5.1 mmol/L 4.9 Chloride 98 - 107 mmol/L 106 CO2 21 - 32 mmol/L 29 Anion Gap 5 - 16 mmol/L 5 eGFR >=60 mL/min/1.73m 54 (L) Total Cholesterol, Nonfasting <200 mg/dL 152 Triglycerides, Nonfasting <150 mg/dL 89 HDL Cholesterol, Nonfasting >39 mg/dL 56 LDL Cholesterol, Nonfasting <100 mg/dL 78 Non HDL Cholesterol, Nonfasting <130 mg/dL 96 VLDL Cholesterol, Nonfasting <30 mg/dL 18 Total Chol/HDL Ratio, Nonfasting <5.10 mg/dL 2.71 LDL/HDL Ratio, Nonfasting <2.54 mg/dL 1.39 Hemoglobin A1C 4.3 - 6.0 % 6.4 (H) Estimated Average Glucose mg/dL 137 PSA 0.00 - 4.00 ng/mL 0.57 TSH 0.358 - 3.740 mIU/L 3.482 MEDICATIONS: Current Outpatient Medications Medication Sig FARXIGA 10 mg tablet Take 10 mg by mouth once daily. SYNTHROID 75 mcg tablet Take 75 mcg by mouth once daily. rosuvastatin (CRESTOR) 5 mg tablet Take 5 mg by mouth once daily. buPROPion XL (WELLBUTRIN XL) 300 mg 24 hr tablet Take 1 tablet by mouth once daily. blood sugar diagnostic (CONTOUR NEXT TEST STRIPS) test strip Test 4 times daily Dx diabetes. On insulin insulin lispro (HUMALOG U-100 INSULIN) 100 unit/mL injection To use as directed with insulin pump. May use up to 50 units daily. enalapril (VASOTEC) 10 mg tablet Take 1 tablet by mouth once daily. aspirin 325 mg tablet Take 1/2 tablet by mouth daily. (Patient taking differently: Take 325 mg by mouth once daily.) CHOLECALCIFEROL (VITAMIN D3) 2,000 UNIT CAP Take 5,000 Units by mouth every other day. XALATAN 0.005 % EYE DROPS No current facility-administered medications for this visit. ALLERGIES: ALLERGIES Allergen Reactions Aspartame migraines PAST MEDICAL HISTORY Diagnosis Date Borderline glaucoma with ocular hypertension Insomnia, unspecified Major depressive disorder, recurrent episode, unspecified on Wellbutrin Obstructive sleep apnea Pure hypercholesterolemia Type I (juvenile type) diabetes mellitus 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, not stated as uncontrolled (HCC) age 16 PAST SURGICAL HISTORY Procedure Laterality Date COLONOSCOPY FLX DX W/COLLJ SPEC WHEN PFRMD 12/12/2014 Colonoscopy DESTRUCTION, 1ST LESION Left great toe UNLISTED PROCEDURE HANDS/FINGERS after industrial trauma FAMILY HISTORY Problem Relation Age of Onset other (glaucoma [Other]) Father Hypertension Mother Cancer Mother uterine? survived - still alive Colon Cancer Other none Prostate Cancer Other none Cancer Maternal Grandmother lung cancer Social History Tobacco Use Smoking status: Never Smokeless tobacco: Never Vaping Use Vaping Use: Never used Substance Use Topics Alcohol use: Yes Comment: occasional Drug use: No Reviewed current medications, allergies, past medical history, surgical history, family history and social history today. REVIEW OF SYSTEMS CARDIOVASCULAR: Negative for chest pain, leg swelling, hypertension, CHF or palpitations All other reviewed and negative other than HPI. HEALTH MAINTENANCE: Reviewed health maintenance issues today and recommended the following in detail. HEPATITIS B(1 of 3 - 3-dose series) Never done COVID-19 VACCINE(1) Never done PNEUMOCOCCAL(1 - PCV) Never done HIV SCREENING -declined. SHINGRIX VACCINE(1 of 2) Never done DTAP,TDAP,TD(2 - Tdap) due on 12/31/2021 DIABETIC FOOT EXAM due on 05/04/2022 URINE ALBUMIN:CREATININE RATIO due on 09/26/2022 DILATED RETINAL EXAM - getting regularly. Had discussion with patient regarding risks and benefits of prostate screening. Allowed them to decide if they wished to proceed with screening including DARIEN and PSA. VITALS: BP 106/66 Pulse 83 Ht 175.3 cm (5' 9 ) Wt 87.1 kg (192 lb) SpO2 96% BMI 28.35 kg/m Last 4 Encounter Wt Readings: Date: Wt: 05/04/2021 89.4 kg (197 lb) 04/28/2021 88.6 kg (195 lb 6.4 oz) 11/03/2020 94.8 kg (209 lb) 10/17/2020 93.4 kg (206 lb) PHYSICAL EXAMINATION: General appearance: Well appearing, alert, in no acute distress, well-hydrated, well nourished. Skin: Skin color, texture, turgor normal, no suspicious rashes or lesions Head: Normocephalic, no masses, lesions, tenderness or abnormalities Neck: Supple, no adenopathy; thyroid symmetric, normal size, no bruits Lungs: Lungs clear to auscultation. No wheezing, rhonchi, rales Heart: RRR without murmur, gallop, or rubs. No ectopy Abdomen: Normal abdominal exam, Abdomen soft, non-tender. Bowel sounds normal. No masses, organomegaly Extremities: No deformities, edema, skin discoloration, clubbing or cyanosis. Good capillary refill. Musculoskeletal: No joint swelling, deformity, or tenderness Feet:Shoes and socks removed, normal distal pulses, trace DP distal pulses, and sensitive to 10 gm monofilament ASSESSMENT/PLAN: 1. Hyperlipidemia due to type 1 diabetes mellitus (HCC) - ICD9: 250.81, 272.4, ICD10: E10.69, E78.5 (primary diagnosis) - Controlled - Continue current medications 2. Stage 3a chronic kidney disease (HCC) - ICD9: 585.3, ICD10: N18.31 - follow labs in six months - BASIC METABOLIC PNL 3. Hypothyroidism, unspecified type - ICD9: 244.9, ICD10: E03.9 - thyroid is good 4. Type 1 diabetes mellitus without complication (HCC) - ICD9: 250.01, ICD10: E10.9 - Controlled - Continue current medications - BASIC METABOLIC PNL 5. Presence of insulin pump - ICD9: V45.85, ICD10: Z96.41 - per endo. 6. Vitamin D deficiency - ICD9: 268.9, ICD10: E55.9 - tested by Dr King Liyah Sood MD RTO in six months documented in this encounter [facility] documented in this encounter [facility]10-31-2022 History of Present illness Narrative* Taryn Arreola APRN.[employer] - 08/05/2022 9:05 AM EDT Chief Complaint Patient presents with: Telemedicine Patient was offered a virtual/telemedicine appointment in lieu of an office visit due to recommendations to reduce patient exposure to COVID-19. Video was used for evaluation of this patient. Patient is aware of limitations of performing the visit without a face to face visit in the office setting and agrees. Patient agrees to the visit: Yes Patient Location: [facility] Leti Barrow is a 57 year old male who is contacted today for a virtual visit This is an established patient of Dr. Liyah Sood MD Reports: covid + Started getting a slight cough last . Negative covid test on Friday. Positive home test on Friday. He has been having intermittent fevers -- 100. + fatigue. + muscle aches. At this point, the fever is pretty much gone. O2Sat - 97%. Refers that he has a little bit of a cough left, but not much to it. Refers that he is diabetic. He is taking zinc, vit B, vit D. He had covid previously 10/2020. Had monoclonal antibodies at that time. Past medical history, appointments, medications, allergies reviewed 08/05/2022 Previous Medical History PAST MEDICAL HISTORY Diagnosis Date Borderline glaucoma with ocular hypertension Insomnia, unspecified Major depressive disorder, recurrent episode, unspecified on Wellbutrin Obstructive sleep apnea Pure hypercholesterolemia Type I (juvenile type) diabetes mellitus 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, not stated as uncontrolled (HCC) age 16 Previous Surgical History PAST SURGICAL HISTORY Procedure Laterality Date COLONOSCOPY FLX DX W/COLLJ SPEC WHEN PFRMD 12/12/2014 Colonoscopy DESTRUCTION, 1ST LESION Left great toe UNLISTED PROCEDURE HANDS/FINGERS after industrial trauma Family History FAMILY HISTORY Problem Relation Age of Onset other (glaucoma [Other]) Father Hypertension Mother Cancer Mother uterine? survived - still alive Colon Cancer Other none Prostate Cancer Other none Cancer Maternal Grandmother lung cancer Patient Allergies ALLERGIES Allergen Reactions Aspartame migraines Current Medications Current Outpatient Medications on File Prior to Visit Medication Sig buPROPion XL (WELLBUTRIN XL) 300 mg 24 hr tablet Take 1 tablet by mouth once daily. atorvastatin (LIPITOR) 10 mg tablet blood sugar diagnostic (CONTOUR NEXT TEST STRIPS) test strip Test 4 times daily Dx diabetes. On insulin insulin lispro (HUMALOG U-100 INSULIN) 100 unit/mL injection To use as directed with insulin pump. May use up to 50 units daily. enalapril (VASOTEC) 10 mg tablet Take 1 tablet by mouth once daily. lovastatin (MEVACOR) 20 mg tablet Take 1 tablet by mouth daily at bedtime. COMPOUNDED PRESCRIPTION Lipo-Flavinoid Plus #500 each Si tabs BID glucagon, human recombinant, (GLUCAGON EMERGENCY KIT, HUMAN,) 1 mg injection Inject 1 mg subcutaneously as directed. INJECT FOR INSULIN SHOCK aspirin 325 mg tablet Take 1/2 tablet by mouth daily. (Patient taking differently: Take 325 mg by mouth once daily.) COMPOUNDED PRESCRIPTION Guardian REAL-Time Glucose Sensors [id number] use as directed COMPOUNDED PRESCRIPTION Medtronic MiniMed infusion sets [id number] Change site every 3 days COMPOUNDED PRESCRIPTION Medtronic MiniMed Reservoirs [id number] Change site every 3 days CHOLECALCIFEROL (VITAMIN D3) 2,000 UNIT CAP Take 5,000 Units by mouth every other day. XALATAN 0.005 % EYE DROPS No current facility-administered medications on file prior to visit. Social History Social History Tobacco Use Smoking status: Never Smokeless tobacco: Never Vaping Use Vaping Use: Never used Substance Use Topics Alcohol use: Yes Comment: occasional Drug use: No EXAM: There were no vitals taken for this visit. Limited exam as visit was completed over the virtual platform. Virtual visit completed using video, limited exam completed. Patient sounds or appears ill: No General Appearance: Well appearing, alert, in no acute distress, well-hydrated, well nourished. Skin: Skin color normal Head: Normocephalic. No facial swelling or redness. EENT: Eyes nonreddened. No discharge. External ears nonreddened and no swelling. Neck: No mass or lesions. No swelling. FROM Patient is unable to speak in complete sentences: No Patient has labored breathing: No. Patient is audibly coughing: No Psych: Attitude - cooperative, easily engaged in conversation Affect - Euthymic, normal mood Mental status: Alert. Speech is clear and fluent with good repetition, comprehension Appearance - Normal hygiene and grooming appropriate Coordination: No abnormal or extraneous movements. Gait/Stance: Posture is normal. Health Maintenance List HEPATITIS B(1 of 3 - 3-dose series) Never done COVID-19 VACCINE(1) Never done PNEUMOCOCCAL(1 - PCV) Never done HIV SCREENING Never done SHINGRIX VACCINE(1 of 2) Never done DTAP,TDAP,TD(2 - Tdap) due on 12/31/2021 DIABETIC FOOT EXAM due on 05/04/2022 INFLUENZA(1) due on 06/06/2022 ANNUAL PCP TEAM CHRONIC DISEASE VISIT due on 06/15/2022 URINE ALBUMIN:CREATININE RATIO due on 09/26/2022 DILATED RETINAL EXAM due on 11/09/2022 HBA1C due on 01/22/2023 LDL CHOLESTEROL due on 07/24/2023 COLORECTAL CANCER SCREENING due on 10/06/2025 PROSTATE CANCER SCREENING DISCUSSION due on 07/24/2027 HEPATITIS C SCREENING Addressed Data reviewed Last 5 Encounter BP Readings: Date: BP: 05/04/2021 132/78 04/28/2021 112/68 11/03/2020 124/66 10/23/2020 125/80 10/17/2020 112/60 BMI Readings from Last 5 Encounters: 05/04/21 : 29.01 kg/m 04/28/21 : 28.78 kg/m 11/03/20 : 30.78 kg/m 10/17/20 : 30.34 kg/m 05/01/20 : 28.87 kg/m Last 5 Encounter Wt Readings: Date: Wt: 05/04/2021 89.4 kg (197 lb) 04/28/2021 88.6 kg (195 lb 6.4 oz) 11/03/2020 94.8 kg (209 lb) 10/17/2020 93.4 kg (206 lb) 05/01/2020 88.9 kg (196 lb) Medication and allergy list reviewed, reconciled and updated 08/05/2022 ASSESSMENT/PLAN: 1. COVID-19 - ICD9: 079.89, ICD10: U07.1 Discussed treatment options w/ patient. He is feeling better. No fever today. Discussed the different treatment options. Since he is feeling better, may opt to do nothing except continue to treat the symptoms. Also just discussed paxlovid which would need to be started today. Also discussed monoclonal antibodies. For now, patient thinks he is going to continue with current treatment. If he changes his mind he will let us know. Discussed treatment plan and patient voices understanding. Patient's questions answered appropriately. Medications and potential side effects were discussed and patient voices understanding. Return to the office as scheduled or as needed for worsening/no improvement. Taryn Arreola APRN.CNP [facility] Miscellaneous Notes* Telephone Encounter - Martha Longo APRN.CNP - 08/04/2022 9:39 AM EDT Reason for call: patient calling in regarding symptoms of covid 19, tested positive on at home test1 day ago. Wondering about anti-viral monoclonal treatment options. Outcome: home care advice reviewed, transferred to appointment center to schedule within recommended time frame to have virtual visit with PCP per zabrina gibson when office open in morning Reason for Disposition [1] HIGH RISK for severe COVID complications (e.g., weak immune system, age > 64 years, obesity with BMI > 25, , chronic lung disease or other chronic medical condition) AND [2] COVID symptoms (e.g., cough, fever) (Exceptions: Already seen by PCP and no new or worsening symptoms.) Answer Assessment - Initial Assessment Questions 1. COVID-19 DIAGNOSIS 1 day ago at home test 3. ONSET: 3 days 4. WORST SYMPTOM: Pain with cough Thin green mucous 5. COUGH: Yes, productive green sputum Left lung burning sensation yesterday and now resolved 6. FEVER: yes 100F yesterday 7. RESPIRATORY STATUS: normal and no shortness of breath 8. [id number]: same 9. HIGH RISK DISEASE: Diabetes, HLD, HTN 10. VACCINE: no 13. OTHER SYMPTOMS:fatigue, sore throat 14. O2 SATURATION MONITOR: 98% Zinc, EmergenC Protocols used: Coronavirus (COVID-19) Diagnosed or [id number] [facility] History of Past illness Narrative* Problem Noted Date Resolved Date Abnormal finding on thyroid function test 202102/06/2023 Hyperlipidemia 12/31/2016 02/06/2023 Other mechanical complication of insulin pump 02/06/2023 Impingement syndrome of left shoulder 10/29/2012 05/13/2019 Multiple rib fractures 10/01/2012 9 Dislocation of PIP joint of finger 10/01/2012 05/13/2019 Pain in joint, shoulder region 08/26/2012 0 02/06/2023 Diarrhea 02/17/2012 05/29/2017 Renal insufficiency 03/29/2010 02/06/2023 Fatigue 08/21/2009 05/29/2017 Pure hypercholesterolemia 2022 documented as of this encounter (statuses as of 02/07/2023) [facility]03-19-[facility] History of Past illness Narrative* Problem Noted Date Diagnosed Date Resolved Date Abnormal finding on thyroid function test 12/22/2021 02/06/2023 Hyperlipidemia 12/31/2016 02/06/2023 Other mechanical complication of insulin pump 01/01/20 17 02/06/2023 Impingement syndrome of left shoulder 10/29/2012 05/13/2019 Multiple rib fractures 10/01/201205/13 Dislocation of PIP joint of finger 10/01/2012 05/13/2019 Pain in joint, shoulder region 08/26/2012 02/06/2023 Diarrhea 02/17/2012 05/29/2017 Renal insufficiency 03/29/2010 02/07/20 23 Fatigue 08/21/2009 05/29/2017 Pure hypercholesterolemia documented as of this encounter (statuses as of 08/23/2023) [facility]01-24[facility] History of Past illness Narrative* Problem Noted Date Resolved Date Impingement syndrome of left shoulder 10/29/2012 05/13/2019 Multiple rib fractures 10/01/2012 9 Dislocation of PIP joint of finger 10/01/2012 05/13/2019 Diarrhea 02/17/2012 05/29/2017 Fatigue 08/21/2009 05/29/2017 documented as of this encounter (statuses as of 12/24/2021) [facility] History of Past illness Narrative* Problem Noted Date Resolved Date Impingement syndrome of left shoulder 10/29/2012 05/13/2019 Multiple rib fractures 10/01/2012 9 Dislocation of PIP joint of finger 10/01/2012 05/13/2019 Diarrhea 02/17/2012 05/29/2017 Fatigue 08/21/2009 05/29/2017 documented as of this encounter (statuses as of 2022) [facility] History of Past illness Narrative* Problem Noted Date Resolved Date Impingement syndrome of left shoulder 10/29/2012 05/13/2019 Multiple rib fractures 10/01/2012 9 Dislocation of PIP joint of finger 10/01/2012 05/13/2019 Diarrhea 02/17/2012 05/29/2017 Fatigue 08/21/2009 05/29/2017 documented as of this encounter (statuses as of 08/04/2022) [facility] History of Past illness Narrative* Problem Noted Date Resolved Date Impingement syndrome of left shoulder 10/29/2012 05/13/2019 Multiple rib fractures 10/01/2012 9 Dislocation of PIP joint of finger 10/01/2012 05/13/2019 Diarrhea 02/17/2012 05/29/2017 Fatigue 08/21/2009 05/29/2017 documented as of this encounter (statuses as of 08/05/2022) [facility] History of Past illness Narrative* Problem Noted Date Resolved Date Impingement syndrome of left shoulder 10/29/2012 05/13/2019 Multiple rib fractures 10/01/2012 9 Dislocation of PIP joint of finger 10/01/2012 05/13/2019 Diarrhea 02/17/2012 05/29/2017 Fatigue 08/21/2009 05/29/2017 documented as of this encounter (statuses as of 01/23/2023) [facility] Diagnosis COVID-19- Primary [facility] in this encounter [facility] Diagnosis Hyperlipidemia due to type 1 diabetes mellitus (HCC)- Primary Primary hypertension Unspecified essential hypertension Stage 3a chronic kidney disease (HCC) Type 1 diabetes mellitus without complication (HCC) Type I (juvenile type) diabetes mellitus 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, not stated as uncontrolled Hypothyroidism, unspecified type Episode of recurrent major depressive disorder, unspecified depression episode severity (HCC) Presence of insulin pump Insulin pump status documented in this encounter [facility] Summary Purpose Family History No Family History Records FoundNo Family History Records FoundNo Family History Records FoundNo Family History Records Found Advance Directives No Advanced Directives Records FoundNo Advanced Directives Records FoundNo Advanced Directives Records FoundNo Advanced Directives Records Found Additional Source Comments (unrecognized sect ion and content) No Status Records FoundNo Status Records FoundNo Status Records FoundNo Status Records Found INFORMATION SOURCE (unrecogn ized section and content) DATE CREATED AUTHOR AUTHOR'S ORGANIZ ATION 01/11/2021 [facility] ([place]) DATE CREATED AUTHOR AUTHOR'S ORGANIZ ATION 06/06/2021 [facility] DATE CREATED AUTHOR AUTHOR'S ORGANIZ ATION 08/27/2023 [facility] Source Comments (unrecognize d section and content) In the event this informatio n is protected by the Federal Confidentiality of Alcohol and Drug Abuse Patient Records regulations: The Federal rules restrict any use of the information to criminally investigate or prosecute any alcohol or drug abuse patient.[facility] the event this information is protected by the Federal Confidentiality of Alcohol and Drug Abuse Patient Records regulations: The Federal rules restrict any use of the information to criminally investigate or prosecute any alcohol or drug abuse patient.[facility] the event this information is protected by the Federal Confidentiality of Alcohol and Drug Abuse Patient Records regulations: The Federal rules restrict any use of the information to criminally investigate or prosecute any alcohol or drug abuse patient.[facility] the event this information is protected by the Federal Confidentiality of Alcohol and Drug Abuse Patient Records regulations: The Federal rules restrict any use of the information to criminally investigate or prosecute any alcohol or drug abuse patient.[facility] the event this information is protected by the Federal Confidentiality of Alcohol and Drug Abuse Patient Records regulations: The Federal rules restrict any use of the information to criminally investigate or prosecute any alcohol or drug abuse patient.[facility] the event this information is protected by the Federal Confidentiality of Alcohol and Drug Abuse Patient Records regulations: The Federal rules restrict any use of the information to criminally investigate or prosecute any alcohol or drug abuse patient.[facility] the event this information is protected by the Federal Confidentiality of Alcohol and Drug Abuse Patient Records regulations: The Federal rules restrict any use of the information to criminally investigate or prosecute any alcohol or drug abuse patient.[facility] Care Teams (unrecognized sec tion and content) Hole Filler Relationship Specialty Start Date End Date Liyah Sood MD [address] [place], [place] [id number] PCP - General Family Medicine 06/29/12 Hole Filler Relationship Specialty Start Date End Date Liyah Sood MD [address] [place], [place] [address] PCP - General Family Medicine 06/29/12 Hole Filler Relationship Specialty Start Date End Date Liyah Sood MD [address] [place], [place] [address] PCP - General Family Medicine 06/29/12 Hole Filler Relationship Specialty Start Date End Date Liyah Sood MD [address] [place], [place] [id number] PCP - General Family Medicine 06/29/12 Hole Filler Relationship Specialty Start Date End Date Liyah Sood MD [address] [place], [place] [address] PCP - General Family Medicine 06/29/12 Reason for Visit (unrecogniz ed section and content) Reason Comments Telemedicine Reason Comments Physical Reason Comments 6 Month Exam FOR RECORDS PERTAINING TO PATIENTS WHO ARE OR HAVE BEEN ENROLLED IN A CHEMICAL DEPENDENCY/SUBSTANCEABUSE PROGRAM, SOME INFORMATION MAY BE OMITTED. This clinical summary was aggregated from multiple sources. Caution should be exercised in using it in the provision of clinical care. This summary normalizes information from multiple sources, and as a consequence, information in this document may materially change the coding, format and clinical context of patient data. In addition, data may be omitted in some cases. CLINICAL DECISIONS SHOULD BE BASED ON THE PRIMARY CLINICAL RECORDS. [facility]. provides no warranty or guarantee of the accuracy or completeness of information in this document.
[2023-10-23 17:53] LABS: Microalbumin,Random Urine < 5.0 mg/L (NO RANGE EST.)
== END | disposition home or self-care (01) ==
LOC: LAB 16:43
PROVIDERS: Nurse Practitioner Family; PCP Family Medicine; Referring Provider Internal Medicine Endocrinology, Diabetes & Metabolism; Visit Provider Internal Medicine Endocrinology, Diabetes & Metabolism
DX: E10.9 Type 1 diabetes mellitus without complications (principal)
CPT/HCPCS: 82043; 82570

== ENCOUNTER → 2023-10-31 | Outpatient (CLI) | payer OTHER, SELFPAY ==
--- OUTSIDE RECORDS SUMMARY | 2023-10-31 15:57 | XMS RPT_ITS | CCD ---
Author Name Unknown Address [address] [place] [address] Organization [facility] Care Team Providers Care Reporter Name Role Phone Janet Medina LPN Unavailable Unavailable Yessica Dumont NP Unavailable Janet Medina LPN Unavailable Unavailable Yessica Dumont NP Unavailable DR ERMA HAWLEY Admitting Unavailable LIYAH SOOD [...] sources) Aspartame; Translations: [ASPARTAME] Drug Allergy 11-18-2005 [facility] Work Phone: Medications Completed/Discontinued Medications Medication Drug [...] 175.3 cm Liyah Sood MD Work Phone: [facility] 08-22-2023 16:08-0500 Body weight 85.46 kg Liyah Sood MD Work Phone: [facility] 08-22-2023 16:08-0500 Diastolic blood pressure 78 mm[Hg] Liyah Sood MD Work Phone: [facility] 08-22-2023 16:08-0500 Heart rate 80 /min Liyah Sood MD Work Phone: [facility] 08-22-2023 16:08-0500 SaO2% (BldA) [Mass fraction] 98 % Liyah Sood MD Work Phone: [facility] 08-22-2023 16:08-0500 Systolic blood pressure 120 mm[Hg] Liyah Sood MD Work Phone: [facility] 02-06-2023 14:44-0400 Body height 175.3 cm Liyah Sood MD Work Phone: [facility] 02-06-2023 14:44-0400 Body weight 87.09 kg Liayh Sood MD Work Phone: [facility] 02-06-2023 14:44-0400 Diastolic blood pressure 66 mm[Hg] Liyah Sood MD Work Phone: [facility] 02-06-2023 14:44-0400 Heart rate 83 /min Liyah Sood MD Work Phone: [facility] 02-06-2023 14:44-0400 SaO2% (BldA) [Mass fraction] 96 % Liyah Sood MD Work Phone: [facility] 02-06-2023 14:44-0400 Systolic blood pressure 106 mm[Hg] Liayh Sood MD Work Phone: [facility] 04-22-2017 15:57-0400 BMI (Body Mass Index) 26.28 kg/m2 Janet Travis [facility] Work Phone: 04-22-2017 15:57-0400 Body Temperature 98 [degF] Janet Travis Infec tious Disease Work Phone: 04-22-2017 15:57-0400 BP Diastolic 70 mm[Hg] Janet Travis Infect [facility] Work Phone: 04-22-2017 15:57-0400 BP Systolic 128 mm[Hg] Janet Travis [facility] Work Phone: 04-22-2017 15:57-0400 Height 179.07 cm Janet Adam SILVERWARE SUPERVISOR [facility] Work Phone: 04-22-2017 15:57-0400 Pulse (Heart Rate) 82 /min Janet Nguyenoster Inf ectious Disease Work Phone: 04-22-2017 15:57-0400 Respiratory Rate 18 /min Janet Travis Infec tious Disease Work Phone: 04-22-2017 15:57-0400 Weight 84.28 kg Janet Medina LPN [facility] Work Phone: 12-31-2016 15:47-0400 BMI (Body Mass Index) 26.7 kg/m2 Yessica Dumont DIRECTOR CRITICAL CARE [facility] Work Phone: 12-31-2016 15:47-0400 Body weight 85.64 kg Yessica Dumont DIRECTOR CRITICAL CARE [facility] Work Phone: 12-31-2016 15:47-0400 BP Diastolic 73 mm[Hg] Yessica Dumont DIRECTOR CRITICAL CARE [facility] Work Phone: 12-31-2016 15:47-0400 BP Systolic 119 mm[Hg] Yessica Dumont DIRECTOR CRITICAL CARE [facility] Work Phone: 12-31-2016 15:47-0400 Height 179.07 cm Yessica Dumont NP [facility] Work Phone: 12-31-2016 15:47-0400 Pulse (Heart Rate) 76 /min Yessica Dumont DIRECTOR CRITICAL CARE [facility] Work Phone: 12-31-2016 15:47-0400 Pulse Oximetry 98 % Yessica Dumont NP [facility] Work Phone: 12-31-2016 15:47-0400 Respiratory Rate 16 /min Yessica Dumont DIRECTOR CRITICAL CARE [facility] Work Phone: 12-31-2016 15:47-0400 Weight 85.64 kg Yessica Dumont DIRECTOR CRITICAL CARE [facility] Work Phone: 03-04-2012 14:11-0400 Body Temperature 97.4 [degF] Yessica Dumont NP [facility] Work Phone: 03-04-2012 14: BSA (Body Surface Area) 2.08 m2 Yessica Dumont NP [facility] Work Phone: Encounters Encounter Date Encounter Type Care Provider Facility Start: 08-22-2023 End: 08-23-2023 ambulatory LIYAH SOOD Facility:[facility] Start: 08-22-2023 End: 08-22-2023 Patient encounter procedure Liyah Sood MD Work Phone: [facility] [place] Procedures Date Procedure Procedure Detail Performing Clinician [...] SCRE ENING DISCUSSION PROSTATE CANCER SCREENING DISCUSSION [facility] Start: 01-03-2028 Urine microalbumin profile [facility] Start: 07-24-2027 PROSTATE CANCER SCRE ENING DISCUSSION PROSTATE CANCER SCREENING DISCUSSION [facility] Start: 10-06-2025 Colonoscopy COLONOSCOPY [facility] Start: 10-06-2025 COLORECTAL CANCER SCREENING COLORECTAL CANCER SCREENING [facility] Start: 12-12-2024 Colonoscopy COLONOSCOPY [facility] Start: 12-12-2024 COLORECTAL CANCER SCREENING COLORECTAL CANCER SCREENING [facility] Start: 08-22-2024 Annual PCP Team Hospital Social Worker velma Disease Visit Annual PCP Team Chronic Disease Visit [facility] Start: 08-22-2024 BP Controlled (<130/80) BP Controlle d (<130/80) [facility] Start: 08-22-2024 Pneumococcal vaccination Pneum ococcal Vaccine (1 - PCV) [facility] Immunizations Immunization Date Immunization Notes Care Provider Fa cility 09-18-2018 Influenza, injectabl e, Madin Natalia Canine Kidney, preservative free, quadrivalent Liyah Sood MD Work Phone: [facility] 09-18-2018 influenza virus vaccine, unspecified formulation Liyah Sood MD Work Phone: [facility] 01-02-2018 tetanus toxoid, redu ashley diphtheria toxoid, and acellular pertussis vaccine, adsorbed Liyah Sood MD Work Phone: [facility] 08-20-2017 influenza, seasonal, injectable Liyah Sood MD Work Phone: [facility] 07-20-2013 influenza virus vaccine, unspecified formulation Liyah Sood MD Work Phone: [facility] 07-06-2012 influenza virus vaccine, whole virus Liyah Sood MD Work Phone: [facility] 01-01-2012 diphtheria, tetanus toxoids and acellular pertussis vaccine Liyah Sood MD Work Phone: [facility] 08-13-2010 influenza virus vaccine, unspecified formulation Liyah Sood MD Work Phone: [facility] Work Phone: 08-21-2009 novel [id number], all formulations Liyah Sood MD Work Phone: [facility] Work Phone: Payers Date Payer Category Payer Unknown [id number] 2019 Unknown MMO MMO [employer] [id number] 2019-Present [phone] [address] [place] [address] PPO [id number] 2019 Unknown [id number] 1965 Unknown [id number] Social History Date Type Detail Facility Start: 02-06-2023 Tobacco smoking stat us [facility] Never smoked tobacco [facility] Start: 05-04-2021 End: 08-22-2023 Alcohol intake Current drinker of alcohol (finding) [facility] Start: 10-19-2020 End: 08-05-2022 History SDOH Alcohol Frequency 3 [facility] Start: 10-19-2020 End: 08-05-2022 History SDOH Alcohol Std Drinks 1 [facility] Start: 10-19-2020 End: 08-05-2022 History SDOH Alcohol Binge 2 [facility] Start: 12-12-2014 History SDOH Alcohol Comment occasional [facility] Start: 10-19-2020 History SDOH Physica l Activity DPW 0 [facility] Start: 10-19-2020 History SDOH Financial 5 [facility] Start: 10-19-2020 Education 17 [facility] Start: 1965 Sex Assigned At Male [facility] Start: 07-25-2022 End: 08-04-2022 Exposure to SARS-CoV-2 (event) Yes [facility] Work Phone: Start: 08-05-2022 History SDOH Financial 4 [facility] Start: 02-06-2023 Tobacco use and exposure Smokeless tobacco non-user [facility] Start: 08-05-2022 End: 02-06-2023 History of Social function [facility] Start: 08-05-2022 End: 02-06-2023 Social connection and isolation panel [facility] Are you now , , , , never or living with a partner? [facility] How often to you hav e a drink containing alcohol? Monthly or less [facility] How many standard drinks containing alcohol do you have on a typical day? 3 or 4 [facility] How often do you hav e 6 or more drinks on 1 occasion? Never [facility] How hard is it for y ou to pay for the very basics like food, housing, medical care, and heating Not very hard [facility] Adult Depression Screening Assessment 0 [facility] Do you feel stress - tense, restless, nervous, or anxious, or unable to sleep at night because your mind is troubled all the time - these days [OSQ] Only a little [facility] (I/We) worried wheth er (my/our) food would run out before (I/we) got money to buy more. Never true [facility] In the past 12 month s, was there a time when you were not able to pay the mortgage or rent on time? No [facility] Start: 04-20-2020 Gender identity Identifies as male gender (finding) [facility] Start: 04-20-2020 Sexual orientation Heterosexual (kristin byrne) [facility] Medical Equipment Procedure Code Equipment Code Equipment Origin al Text Equipment Identifier Dates Test 4 times esmer ly Dx diabetes. On insulin Start: 05-05-2020 Clinical Notes 10-29-2012 to 08-22-2023 Liyah Sood MD - 08/22/2023 4:08 PM Amparo Sood MD - 02/06/2023 2:44 PM EDT Note Date & Type Note Facility 08-22-2023 Note HNO ID: [id number] Author: Liyah Sood MD Service: ? Author [...] ICD9: 401.9, IC (more content not included)... [facility] 08-22-2023 History of Present illness Narrative Patient [...] Liyah Sood MD documented in this encounter [facility] 02-06-2023 Note HNO ID: [id number] Author: Liyah Sood MD Service: ? Author [...] Abs Lymph 1.00 - 4.00 k/uL 2.14 Coles% % 11.7 Abs Coles <0.87 k/uL 0.68 Eosin% % 2.6 Abs [...] recommended the fol (more content not included)... [facility] 02-06-2023 History of Present illness Narrative Patient [...] Abs Lymph 1.00 - 4.00 k/uL 2.14 Coles% % 11.7 Abs Coles <0.87 k/uL 0.68 Eosin% % 2.6 Abs [...] in six months documented in this encounter [facility] documented in this encounter [facility]10-31-2022 History of Present illness Narrative* Taryn Arreola APRN.CLINICAL REHABILITATION SPECIALIST - 08/05/2022 9:05 AM EDT Chief Complaint [...] agrees to the visit: Yes Patient Location: [facility] Leti Barrow is a 57 year old [...] daily.) COMPOUNDED PRESCRIPTION Guardian REAL-Time Glucose Sensors [id number] use as directed COMPOUNDED PRESCRIPTION Medtronic MiniMed infusion sets [id number] Change site every 3 days COMPOUNDED PRESCRIPTION Medtronic MiniMed Reservoirs [id number] Change site every 3 days CHOLECALCIFEROL (VITAMIN [...] improvement. Taryn Arreola APRN.CNP [facility] Miscellaneous Notes* Telephone Encounter - Martha Longo [...] normal and no shortness of breath 8. [id number]: same 9. HIGH RISK DISEASE: Diabetes, HLD, HTN 10. VACCINE: no 13. OTHER SYMPTOMS:fatigue, sore throat 14. O2 SATURATION MONITOR: 98% Zinc, EmergenC Protocols used: Coronavirus (COVID-19) Diagnosed or [id number] [facility] History of Past illness Narrative* Problem Noted [...] of this encounter (statuses as of 02/07/2023) [facility] History of Past illness Narrative* Problem Noted [...] of this encounter (statuses as of 08/23/2023) [facility] History of Past illness Narrative* Problem Noted Date Resolved Date Impingement syndrome of left shoulder 10/29/2012 05/13/2019 Multiple rib fractures 10/01/2012 9 Dislocation of PIP joint of finger 10/01/2012 05/13/2019 Diarrhea 02/17/2012 05/29/2017 Fatigue 08/21/2009 05/29/2017 documented as of this encounter (statuses as of 12/24/2021) [facility] History of Past illness Narrative* Problem Noted Date Resolved Date Impingement syndrome of left shoulder 10/29/2012 05/13/2019 Multiple rib fractures 10/01/2012 9 Dislocation of PIP joint of finger 10/01/2012 05/13/2019 Diarrhea 02/17/2012 05/29/2017 Fatigue 08/21/2009 05/29/2017 documented as of this encounter (statuses as of 2022) [facility] History of Past illness Narrative* Problem Noted Date Resolved Date Impingement syndrome of left shoulder 10/29/2012 05/13/2019 Multiple rib fractures 10/01/2012 9 Dislocation of PIP joint of finger 10/01/2012 05/13/2019 Diarrhea 02/17/2012 05/29/2017 Fatigue 08/21/2009 05/29/2017 documented as of this encounter (statuses as of 08/04/2022) [facility] History of Past illness Narrative* Problem Noted Date Resolved Date Impingement syndrome of left shoulder 10/29/2012 05/13/2019 Multiple rib fractures 10/01/2012 9 Dislocation of PIP joint of finger 10/01/2012 05/13/2019 Diarrhea 02/17/2012 05/29/2017 Fatigue 08/21/2009 05/29/2017 documented as of this encounter (statuses as of 08/05/2022) [facility] History of Past illness Narrative* Problem Noted Date Resolved Date Impingement syndrome of left shoulder 10/29/2012 05/13/2019 Multiple rib fractures 10/01/2012 9 Dislocation of PIP joint of finger 10/01/2012 05/13/2019 Diarrhea 02/17/2012 05/29/2017 Fatigue 08/21/2009 05/29/2017 documented as of this encounter (statuses as of 01/23/2023) [facility] Diagnosis COVID-19- Primary [facility] this encounter [facility] Diagnosis Hyperlipidemia due to type 1 [...] Insulin pump status documented in this encounter [facility] Summary Purpose Family History No Family History [...] DATE CREATED AUTHOR AUTHOR'S ORGANIZ ATION 01/11/2021 [facility] ([place] DATE CREATED AUTHOR AUTHOR'S ORGANIZ ATION 06/06/2021 [facility] DATE CREATED AUTHOR AUTHOR'S ORGANIZ ATION 08/27/2023 [facility] Source Comments (unrecognize d section and content) In the event this informatio n is protected by the Federal Confidentiality of Alcohol and Drug Abuse Patient Records regulations: The Federal rules restrict any use of the information to criminally investigate or prosecute any alcohol or drug abuse patient.[facility] the event this information is protected by the Federal Confidentiality of Alcohol and Drug Abuse Patient Records regulations: The Federal rules restrict any use of the information to criminally investigate or prosecute any alcohol or drug abuse patient.[facility] the event this information is protected by the Federal Confidentiality of Alcohol and Drug Abuse Patient Records regulations: The Federal rules restrict any use of the information to criminally investigate or prosecute any alcohol or drug abuse patient.[facility] the event this information is protected by the Federal Confidentiality of Alcohol and Drug Abuse Patient Records regulations: The Federal rules restrict any use of the information to criminally investigate or prosecute any alcohol or drug abuse patient.[facility] the event this information is protected by the Federal Confidentiality of Alcohol and Drug Abuse Patient Records regulations: The Federal rules restrict any use of the information to criminally investigate or prosecute any alcohol or drug abuse patient.[facility] the event this information is protected by the Federal Confidentiality of Alcohol and Drug Abuse Patient Records regulations: The Federal rules restrict any use of the information to criminally investigate or prosecute any alcohol or drug abuse patient.[facility] the event this information is protected by the Federal Confidentiality of Alcohol and Drug Abuse Patient Records regulations: The Federal rules restrict any use of the information to criminally investigate or prosecute any alcohol or drug abuse patient.[facility] Care Teams (unrecognized sec tion and content) Reporter Relationship Specialty Start Date End Date Liyah Sood MD [address] [place], [place] [id number] PCP - General Family Medicine 06/29/12 Reporter Relationship Specialty Start Date End Date Liyah Sood MD [address] [place], [place] [address] PCP - General Family Medicine 06/29/12 Reporter Relationship Specialty Start Date End Date Liyah Sood MD [address] [place], [place] [id number] PCP - General Family Medicine 06/29/12 Reporter Relationship Specialty Start Date End Date Liyah Sood MD [address] [place], [place] [id number] PCP - General Family Medicine 06/29/12 Reporter Relationship Specialty Start Date End Date Liyah Sood MD [address] [place], [place] [id number] PCP - General Family Medicine 06/29/12 Reason [...] BE BASED ON THE PRIMARY CLINICAL RECORDS. [facility]. provides no warranty or guarantee of the accuracy or completeness of information in this document.
[2023-10-31 16:55] LABS: Vitamin D,25 Hydroxy 66.7 ng/mL
[2023-10-31 17:03] LABS: ALB/GLOB Ratio 1.2 RATIO (0.9-2.4); AST(SGOT) 19 U/L (15-37); Alanine Aminotransfer ALT/SGPT 23 U/L (16-61); Albumin, Serum 3.8 g/dL (3.2-5.0); Alkaline Phosphatase 64 U/L (45-117); Anion Gap 3 (5-15); BUN 13 mg/dL (7-18); BUN/Creat Ratio 8.6 RATIO (10-20); Calcium,Total 9.1 mg/dL (8.5-10.1); Chloride 106 mmol/L (98-107); Cholesterol 163 mg/dL (200); Creatinine, Serum 1.51 mg/dL (0.70-1.30); EST Glomerular Filtration Rate 50 mL/min (>60); Est Glom Filt Rate - Afr Amer 61 mL/min (>60); Globulin 3.3 g/dL (2.2-4.2); Glucose 77 mg/dL (74-106); High Density Lipoprotein 61 mg/dL; Potassium 4.3 mmol/L (3.5-5.1); Protein, Total 7.1 g/dL (6.4-8.2); Sodium Level 137 mmol/L (136-145); Thyroid Stim Hormone (TSH) 1.87 uIU/mL (0.358-3.74); Triglycerides 162 mg/dL; Very Low Density Lipoprotein 32 mg/dL (5-40)
[2023-11-05 18:26] LABS: Creat.Clear Total Volume 4300 mL; Creatinine Clearance 26 ml/min (100-200); Creatinine Serum Creat 1.5 mg/dL (0.8-1.3); Creatinine Urine < 13.0 mg/dL (NO RANGE EST.); EST Glomerular Filtration Rate 50 mL/min (>60); Est Glom Filt Rate - Afr Amer 61 mL/min (>60)
== END | disposition home or self-care (01) ==
LOC: LABSPEC 15:34
PROVIDERS: PCP Family Medicine; Referring Provider Internal Medicine Endocrinology, Diabetes & Metabolism; Visit Provider Internal Medicine Endocrinology, Diabetes & Metabolism
DX: E10.22 Type 1 diabetes mellitus with diabetic chronic kidney disease (principal); N18.31 Chronic kidney disease, stage 3a; E78.5 Hyperlipidemia, unspecified; I12.9 Hypertensive chronic kidney disease with stage 1 through stage 4 chronic kidney disease, or unspecified chronic kidney disease; E03.9 Hypothyroidism, unspecified; Z96.41 Presence of insulin pump (external) (internal)
CPT/HCPCS: 36415; 80053; 80061; 81050; 82306; 82575; 84443

== ENCOUNTER → 2023-11-05 | Outpatient (CLI) | payer OTHER, SELFPAY ==
--- OUTSIDE RECORDS SUMMARY | 2023-11-05 16:31 | XMS RPT_ITS | CCD ---
Author Name Unknown Address [address] [place] [address] Organization [facility] Care Team Providers Care Filling And Packing Supervisor Name Role Phone Janet Medina LPN Unavailable Unavailable Yessica Dumont NP Unavailable Janet Medina LPN Unavailable Unavailable Yessica Dumont NP Unavailable DR ERMA HAWLEY Admitting Unavailable LIYAH SOOD Unavailable LIYAH SOOD Unavailable DR ERMA HAWLEY Attending Unavailable DR ERMA HAWLEY Primary Care Unavailable PROVIDER, UNKNOWN Consulting Liyah Kelly MD Primary Care Provider Liyah oSod MD Primary Care Provider Liyah Sood MD [...] sources) Aspartame; Translations: [ASPARTAME] Drug Allergy 11-18-2005 [facility] Work Phone: Medications Completed/Discontinued Medications Medication Drug [...] 175.3 cm Liyah Sood MD Work Phone: [facility] 08-22-2023 16:08-0500 Body weight 85.46 kg Liyah Sood MD Work Phone: [facility] 08-22-2023 16:08-0500 Diastolic blood pressure 78 mm[Hg] Liyah Sood MD Work Phone: [facility] 08-22-2023 16:08-0500 Heart rate 80 /min Liyah Sood MD Work Phone: [facility] 08-22-2023 16:08-0500 SaO2% (BldA) [Mass fraction] 98 % Liyah Sood MD Work Phone: [facility] 08-22-2023 16:08-0500 Systolic blood pressure 120 mm[Hg] Liyah Sood MD Work Phone: [facility] 02-06-2023 14:44-0400 Body height 175.3 cm Liyah Sood MD Work Phone: [facility] 02-06-2023 14:44-0400 Body weight 87.09 kg Liyah Sood MD Work Phone: [facility] 02-06-2023 14:44-0400 Diastolic blood pressure 66 mm[Hg] Liyah Sood MD Work Phone: [facility] 02-06-2023 14:44-0400 Heart rate 83 /min Liyah Sood MD Work Phone: [facility] 02-06-2023 14:44-0400 SaO2% (BldA) [Mass fraction] 96 % Liyah Sood MD Work Phone: [facility] 02-06-2023 14:44-0400 Systolic blood pressure 106 mm[Hg] Liyah Sood MD Work Phone: [facility] 04-22-2017 15:57-0400 BMI (Body Mass Index) 26.28 kg/m2 Janet Travis [facility] Work Phone: 04-22-2017 15:57-0400 Body Temperature 98 [degF] Janet Travis Infec tious Disease Work Phone: 04-22-2017 15:57-0400 BP Diastolic 70 mm[Hg] Janet Travis [facility] Work Phone: 04-22-2017 15:57-0400 BP Systolic 128 mm[Hg] Janet Travis [facility] Work Phone: 04-22-2017 15:57-0400 Height 179.07 cm Janet Adam PROCESS CONSULTANT [facility] Work Phone: 04-22-2017 15:57-0400 Pulse (Heart Rate) 82 /min Janet Nguyenoster [facility] ect[facility] Work Phone: 04-22-2017 15:57-0400 Respiratory Rate 18 /min Janet Travis Infec t[facility] Disease Work Phone: 04-22-2017 15:57-0400 Weight 84.28 kg Janet Medina LPN [facility] Work Phone: 12-31-2016 15:47-0400 BMI (Body Mass Index) 26.7 kg/m2 Yessica Dumont FACILITY SECURITY OFFICER [facility] Work Phone: 12-31-2016 15:47-0400 Body weight 85.64 kg Yessica Dumont FACILITY SECURITY OFFICER [facility] Work Phone: 12-31-2016 15:47-0400 BP Diastolic 73 mm[Hg] Yessica Dumont FACILITY SECURITY OFFICER [facility] Work Phone: 12-31-2016 15:47-0400 BP Systolic 119 mm[Hg] Yessica Dumont FACILITY SECURITY OFFICER [facility] Work Phone: 12-31-2016 15:47-0400 Height 179.07 cm Yessica Dumont NP [facility] Work Phone: 12-31-2016 15:47-0400 Pulse (Heart Rate) 76 /min Yessica Dumont FACILITY SECURITY OFFICER [facility] Work Phone: 12-31-2016 15:47-0400 Pulse Oximetry 98 % Yessica Dumont NP [facility] Work Phone: 12-31-2016 15:47-0400 Respiratory Rate 16 /min Yessica Dumont FACILITY SECURITY OFFICER [facility] Work Phone: 12-31-2016 15:47-0400 Weight 85.64 kg Yessica Dumont FACILITY SECURITY OFFICER [facility] Work Phone: 03-04-2012 14:11-0400 Body Temperature 97.4 [degF] Yessica Dumont NP [facility] Work Phone: 03-04-2012 14: BSA (Body Surface Area) 2.08 m2 Yessica Dumont NP [facility] Work Phone: Encounters Encounter Date Encounter Type Care Provider Facility Start: 08-22-2023 End: 08-23-2023 ambulatory LIYAH SOOD Facility:[facility] Start: 08-22-2023 End: 08-22-2023 Patient encounter procedure Liyah Sood MD Work Phone: [facility] Procedures Date Procedure Procedure Detail Performing Clinician [...] SCRE ENING DISCUSSION PROSTATE CANCER SCREENING DISCUSSION [facility] Start: 01-03-2028 Urine microalbumin profile [facility] Start: 07-24-2027 PROSTATE CANCER SCRE ENING DISCUSSION PROSTATE CANCER SCREENING DISCUSSION [facility] Start: 10-06-2025 Colonoscopy COLONOSCOPY [facility] Start: 10-06-2025 COLORECTAL CANCER SCREENING COLORECTAL CANCER SCREENING [facility] Start: 12-12-2024 Colonoscopy COLONOSCOPY [facility] Start: 12-12-2024 COLORECTAL CANCER SCREENING COLORECTAL CANCER SCREENING [facility] Start: 08-22-2024 Annual PCP Team Arts Administrator Or Manager velma Disease Visit Annual PCP Team Chronic Disease Visit [facility] Start: 08-22-2024 BP Controlled (<130/80) BP Controlle d (<130/80) [facility] Start: 08-22-2024 Pneumococcal vaccination Pneum ococcal Vaccine (1 - PCV) [facility] Immunizations Immunization Date Immunization Notes Care Provider Fa cility 09-18-2018 Influenza, injectabl e, Madin Natalia Canine Kidney, preservative free, quadrivalent Liyah Sood MD Work Phone: [facility] 09-18-2018 influenza virus vaccine, unspecified formulation Liyah Sood MD Work Phone: [facility] 01-02-2018 tetanus toxoid, redu ashley diphtheria toxoid, and acellular pertussis vaccine, adsorbed Liyah Sood MD Work Phone: [facility] 08-20-2017 influenza, seasonal, injectable Liyah Sood MD Work Phone: [facility] 07-20-2013 influenza virus vaccine, unspecified formulation Liyah Sood MD Work Phone: [facility] 07-06-2012 influenza virus vaccine, whole virus Liyah Sood MD Work Phone: [facility] 01-01-2012 diphtheria, tetanus toxoids and acellular pertussis vaccine Liyah Sood MD Work Phone: [facility] 08-13-2010 influenza virus vaccine, unspecified formulation Liyah Sood MD Work Phone: [facility] Work Phone: 08-21-2009 novel [id number], all formulations Liyah Sood MD Work Phone: [facility] Work Phone: Payers Date Payer Category Payer Unknown [id number] 2019 Unknown MMO MMO [employer] [id number] 2019-Present [phone] [address] [place] [address] PPO [id number] 2019 Unknown [id number] 1964 Unknown [id number] Social History Date Type Detail Facility Start: 02-06-2023 Tobacco smoking stat us [facility] Never smoked tobacco [facility] Start: 05-04-2021 End: 08-22-2023 Alcohol intake Current drinker of alcohol (finding) [facility] Start: 10-19-2020 End: 08-05-2022 History SDOH Alcohol Frequency 3 [facility] Start: 10-19-2020 End: 08-05-2022 History SDOH Alcohol Std Drinks 1 [facility] Start: 10-19-2020 End: 08-05-2022 History SDOH Alcohol Binge 2 [facility] Start: 12-12-2014 History SDOH Alcohol Comment occasional [facility] Start: 10-19-2020 History SDOH Physica l Activity DPW 0 [facility] Start: 10-19-2020 History SDOH Financial 5 [facility] Start: 10-19-2020 Education 17 [facility] Start: 1965 Sex Assigned At Male [facility] Start: 07-25-2022 End: 08-04-2022 Exposure to SARS-CoV-2 (event) Yes [facility] Work Phone: Start: 08-05-2022 History SDOH Financial 4 [facility] Start: 02-06-2023 Tobacco use and exposure Smokeless tobacco non-user [facility] Start: 08-05-2022 End: 02-06-2023 History of Social function [facility] Start: 08-05-2022 End: 02-06-2023 Social connection and isolation panel [facility] Are you now , , , , never or living with a partner? [facility] How often to you hav e a drink containing alcohol? Monthly or less [facility] How many standard drinks containing alcohol do you have on a typical day? 3 or 4 [facility] How often do you hav e 6 or more drinks on 1 occasion? Never [facility] How hard is it for y ou to pay for the very basics like food, housing, medical care, and heating Not very hard [facility] Adult Depression Screening Assessment 0 [facility] Do you feel stress - tense, restless, nervous, or anxious, or unable to sleep at night because your mind is troubled all the time - these days [OSQ] Only a little [facility] (I/We) worried wheth er (my/our) food would run out before (I/we) got money to buy more. Never true [facility] In the past 12 month s, was there a time when you were not able to pay the mortgage or rent on time? No [facility] Start: 04-20-2020 Gender identity Identifies as male gender (finding) [facility] Start: 04-20-2020 Sexual orientation Heterosexual (kristin byrne) [facility] Medical Equipment Procedure Code Equipment Code Equipment Origin al Text Equipment Identifier Dates Test 4 times esmer ly Dx diabetes. On insulin Start: 05-05-2020 Clinical Notes 10-29-2012 to 08-22-2023 Liyah Sood MD - 08/22/2023 4:08 PM Amparo Sood MD - 02/06/2023 2:44 PM EDT Note Date & Type Note Facility 08-22-2023 Note HNO ID: [id number] Author: Liyah Sood MD Service: ? Author [...] ICD9: 401.9, IC (more content not included)... [facility] 08-22-2023 History of Present illness Narrative [...] Liyah Sood MD documented in this encounter [facility] 02-06-2023 Note HNO ID: [id number] Author: Liyah Sood MD Service: ? Author [...] Abs Lymph 1.00 - 4.00 k/uL 2.14 Pender% % 11.7 Abs Pender <0.87 k/uL 0.68 Eosin% % 2.6 Abs [...] recommended the fol (more content not included)... [facility] 02-06-2023 History of Present illness Narrative [...] Abs Lymph 1.00 - 4.00 k/uL 2.14 Pender% % 11.7 Abs Pender <0.87 k/uL 0.68 Eosin% % 2.6 Abs [...] in six months documented in this encounter [facility] documented in this encounter [facility]10[facility] History of Present illness Narrative* Taryn Arreola APRN.[employer]ESS OPERATOR - 08/05/2022 9:05 AM EDT Chief Complaint [...] agrees to the visit: Yes Patient Location: [facility] Leti Barrow is a 57 year old [...] daily.) COMPOUNDED PRESCRIPTION Guardian REAL-Time Glucose Sensors [id number] use as directed COMPOUNDED PRESCRIPTION Medtronic MiniMed infusion sets [id number] Change site every 3 days COMPOUNDED PRESCRIPTION Medtronic MiniMed Reservoirs [id number] Change site every 3 days CHOLECALCIFEROL (VITAMIN [...] improvement. Taryn Arreola APRN.CNP [facility] Miscellaneous Notes* Telephone Encounter - Martha Longo [...] normal and no shortness of breath 8. [id number]: same 9. HIGH RISK DISEASE: Diabetes, HLD, HTN 10. VACCINE: no 13. OTHER SYMPTOMS:fatigue, sore throat 14. O2 SATURATION MONITOR: 98% Zinc, EmergenC Protocols used: Coronavirus (COVID-19) Diagnosed or [id number] documented [facility] History of Past illness Narrative* Problem Noted [...] of this encounter (statuses as of 02/07/2023) [facility] of Past illness Narrative* Problem Noted [...] of this encounter (statuses as of 08/23/2023) [facility] History of Past illness Narrative* Problem Noted Date Resolved Date Impingement syndrome of left shoulder 10/29/2012 05/13/2019 Multiple rib fractures 10/01/2012 9 Dislocation of PIP joint of finger 10/01/2012 05/13/2019 Diarrhea 02/17/2012 05/29/2017 Fatigue 08/21/2009 05/29/2017 documented as of this encounter (statuses as of 12/24/2021) [facility] History of Past illness Narrative* Problem Noted Date Resolved Date Impingement syndrome of left shoulder 10/29/2012 05/13/2019 Multiple rib fractures 10/01/2012 9 Dislocation of PIP joint of finger 10/01/2012 05/13/2019 Diarrhea 02/17/2012 05/29/2017 Fatigue 08/21/2009 05/29/2017 documented as of this encounter (statuses as of 2022) [facility] of Past illness Narrative* Problem Noted Date Resolved Date Impingement syndrome of left shoulder 10/29/2012 05/13/2019 Multiple rib fractures 10/01/2012 9 Dislocation of PIP joint of finger 10/01/2012 05/13/2019 Diarrhea 02/17/2012 05/29/2017 Fatigue 08/21/2009 05/29/2017 documented as of this encounter (statuses as of 08/04/2022) [facility] of Past illness Narrative* Problem Noted Date Resolved Date Impingement syndrome of left shoulder 10/29/2012 05/13/2019 Multiple rib fractures 10/01/2012 9 Dislocation of PIP joint of finger 10/01/2012 05/13/2019 Diarrhea 02/17/2012 05/29/2017 Fatigue 08/21/2009 05/29/2017 documented as of this encounter (statuses as of 08/05/2022) [facility] of Past illness Narrative* Problem Noted Date Resolved Date Impingement syndrome of left shoulder 10/29/2012 05/13/2019 Multiple rib fractures 10/01/2012 9 Dislocation of PIP joint of finger 10/01/2012 05/13/2019 Diarrhea 02/17/2012 05/29/2017 Fatigue 08/21/2009 05/29/2017 documented as of this encounter (statuses as of 01/23/2023) [facility] Diagnosis COVID-19- Primary [facility] this encounter [facility]Evalunem[facility] foundation [facility]* Diagnosis Hyperlipidemia due to type 1 [...] Insulin pump status documented in this encounter [facility] Summary Purpose Family History No Family History [...] DATE CREATED AUTHOR AUTHOR'S ORGANIZ ATION 01/11/2021 [facility] DATE CREATED AUTHOR AUTHOR'S ORGANIZ ATION 06/06/2021 [facility] DATE CREATED AUTHOR AUTHOR'S ORGANIZ ATION 08/27/2023 [facility] Source Comments (unrecognize d section and content) In the event this informatio n is protected by the Federal Confidentiality of Alcohol and Drug Abuse Patient Records regulations: The Federal rules restrict any use of the information to criminally investigate or prosecute any alcohol or drug abuse patient.[facility] the event this information is protected by the Federal Confidentiality of Alcohol and Drug Abuse Patient Records regulations: The Federal rules restrict any use of the information to criminally investigate or prosecute any alcohol or drug abuse patient.[facility] Center[facility] the event this information is protected by the Federal Confidentiality of Alcohol and Drug Abuse Patient Records regulations: The Federal rules restrict any use of the information to criminally investigate or prosecute any alcohol or drug abuse patient.[facility] Center[facility] the event this information is protected by the Federal Confidentiality of Alcohol and Drug Abuse Patient Records regulations: The Federal rules restrict any use of the information to criminally investigate or prosecute any alcohol or drug abuse patient.[facility] Center[facility] the event this information is protected by the Federal Confidentiality of Alcohol and Drug Abuse Patient Records regulations: The Federal rules restrict any use of the information to criminally investigate or prosecute any alcohol or drug abuse patient.[facility] Center[facility] the event this information is protected by the Federal Confidentiality of Alcohol and Drug Abuse Patient Records regulations: The Federal rules restrict any use of the information to criminally investigate or prosecute any alcohol or drug abuse patient.[facility] Center[facility] the event this information is protected by the Federal Confidentiality of Alcohol and Drug Abuse Patient Records regulations: The Federal rules restrict any use of the information to criminally investigate or prosecute any alcohol or drug abuse patient.[facility] Care Teams (unrecognized sec tion and content) Filling And Packing Supervisor Relationship Specialty Start Date End Date Liyah Sood MD [address], [place] [id number] PCP - General Family Medicine 06/29/12 Filling And Packing Supervisor Relationship Specialty Start Date End Date Liyah Sood MD [address], [place] [address] PCP - General Family Medicine 06/29/12 Filling And Packing Supervisor Relationship Specialty Start Date End Date Liyah Sood MD [address], [place] [id number] PCP - General Family Medicine 06/29/12 Filling And Packing Supervisor Relationship Specialty Start Date End Date Liyah Sood MD [address], [place] [id number] PCP - General Family Medicine 06/29/12 Filling And Packing Supervisor Relationship Specialty Start Date End Date Liyah Sood MD [address], [place] [address] PCP - General Family Medicine 06/29/12 Reason [...] BE BASED ON THE PRIMARY CLINICAL RECORDS. [facility]. provides no warranty or guarantee of the accuracy or completeness of information in this document.
== END | disposition home or self-care (01) ==
LOC: LAB 15:53
PROVIDERS: PCP Family Medicine; Referring Provider Internal Medicine Endocrinology, Diabetes & Metabolism; Visit Provider Internal Medicine Endocrinology, Diabetes & Metabolism
DX: Z00.00 Encounter for general adult medical examination without abnormal findings (principal)

== ENCOUNTER → 2025-05-25 | Outpatient (CLI) | payer OTHER, SELFPAY | END | disposition home or self-care (01) | LOC: LAB 12:26 | PROVIDERS: PCP Family Medicine; Referring Provider Internal Medicine Endocrinology, Diabetes & Metabolism; Visit Provider Internal Medicine Endocrinology, Diabetes & Metabolism | DX: E10.65 Type 1 diabetes mellitus with hyperglycemia (principal); E10.69 Type 1 diabetes mellitus with other specified complication; E10.22 Type 1 diabetes mellitus with diabetic chronic kidney disease; N18.31 Chronic kidney disease, stage 3a; E03.8 Other specified hypothyroidism; E06.3 Autoimmune thyroiditis; I12.9 Hypertensive chronic kidney disease with stage 1 through stage 4 chronic kidney disease, or unspecified chronic kidney disease; E78.5 Hyperlipidemia, unspecified; Z96.41 Presence of insulin pump (external) (internal) | CPT/HCPCS: 36415; 84443 ==